=== PATIENT | male | born 1955 | race Hispanic/Latino ===

== ENCOUNTER → 2019-10-12 | Outpatient (CLI) | payer SELFPAY | END | disposition home or self-care (01) | LOC: RAH 14:09 | PROVIDERS: ATTEND Internal Medicine | DX: M47.814 Spondylosis without myelopathy or radiculopathy, thoracic region (principal); M43.8X4 Other specified deforming dorsopathies, thoracic region | CPT/HCPCS: 72070 ==

== ENCOUNTER → 2019-11-04 | Outpatient (CLI) | payer OTHER, SELFPAY | END | disposition home or self-care (01) | LOC: RAH 08:36 | PROVIDERS: ATTEND Internal Medicine | DX: K80.20 Calculus of gallbladder without cholecystitis without obstruction (principal); Z87.891 Personal history of nicotine dependence | CPT/HCPCS: 76705; 76775 ==

== ENCOUNTER → 2019-11-30 | Outpatient (CLI) | payer SELFPAY | END | disposition home or self-care (01) | LOC: RAH 07:36 | PROVIDERS: ATTEND Internal Medicine | DX: S22.050A Wedge compression fracture of T5-T6 vertebra, initial encounter for closed fracture (principal); X58.XXXA Exposure to other specified factors, initial encounter; Y93.89 Activity, other specified; Y92.89 Other specified places as the place of occurrence of the external cause; Y99.8 Other external cause status | CPT/HCPCS: 72146 ==

== ENCOUNTER → 2023-02-19 | Outpatient (CLI) | payer OTHER | END | disposition home or self-care (01) | LOC: RAH 10:13 | PROVIDERS: ATTEND Internal Medicine | DX: I70.0 Atherosclerosis of aorta (principal); I25.10 Atherosclerotic heart disease of native coronary artery without angina pectoris | CPT/HCPCS: 93880 ==

== ENCOUNTER 2023-04-01 17:17 | Emergency (ER) | payer OTHER ==
[~2023-04-01] VITALS: Ht 162.6 cm; Wt 68.9 kg
[2023-04-01 17:48] LABS: HEMATOCRIT 41.3 % (42-54); MEAN CORPUSCULAR HEMOGLOBIN 30.4 pg (27.0-33.0); MEAN CORPUSCULAR HGB CONC 32.7 g/dL (32.0-36.0); MONOCYTES % (AUTO) 5.5 % (3.0-13.0); NEUTROPHILS % (AUTO) 82.9 % (40.0-77.0); PLATELET COUNT (AUTO) 191 K/uL (130-400); RED BLOOD CELL COUNT(AUTO) 4.44 MIL/uL (4.50-6.20); WHITE BLOOD COUNT (AUTO) 6.8 K/uL (4.8-10.8)
[2023-04-01 17:57] LABS: CREATININE 0.9 mg/dL (0.5-1.5); POTASSIUM 3.7 mmol/L (3.5-5.1)
[2023-04-01 18:00] LABS: APPEARANCE,URINE CLEAR (CLEAR); BILIRUBIN,URINE NEGATIVE (NEGATIVE); COLOR,URINE YELLOW (YELLOW); GLUCOSE, URINE (UA) NEGATIVE (NEGATIVE); KETONES,URINE 10 mg/dL (NEGATIVE); LEUKOCYTE ESTERASE ,URINE 75 Leu/uL (NEGATIVE); NITRATE,URINE NEGATIVE (NEGATIVE); OCCULT BLOOD,URINE NEGATIVE (NEGATIVE); PH,URINE 5.5 (5.0-8.0); PROTEIN,URINE 30 mg/dL (NEGATIVE)
[2023-04-01 18:03] LABS: ALBUMIN 3.3 g/dL (3.5-5.0); TOTAL PROTEIN, SERUM 7.4 g/dL (6.0-8.3)
[2023-04-01 18:20] LABS: BACTERIA,URINE FEW /HPF (None Seen); MUCUS,URINE RARE LPF (None Seen); RBC,URINE 0-1 /HPF (0-1); SQUAMOUS EPITHELIAL CELL,UR RARE /HPF (0-2)
[2023-04-01] MEDS ORDERED: ZOSYN 3.375GM +NS 50ML IVPB ONE (19:00)
[2023-04-01] MEDS ORDERED: IOHEXOL-350 75 ML VIAL IV ONE (20:25)
[2023-04-01 22:33] VITALS: BP 138/78; PULSE 78; RESP 16; O2SAT 97
== END 2023-04-01 23:10 | disposition home or self-care (01) ==
LOC: EDH 17:17
DX: K85.90 Acute pancreatitis without necrosis or infection, unspecified (principal); K80.20 Calculus of gallbladder without cholecystitis without obstruction; N39.0 Urinary tract infection, site not specified; I10 Essential (primary) hypertension; E78.00 Pure hypercholesterolemia, unspecified; Z85.528 Personal history of other malignant neoplasm of kidney
CPT/HCPCS: 99285; 74177; 96365; 96366; 76700; 80053; 83690; 85025; 87088; 81001; 36415; J2543; Q9967

== ENCOUNTER → 2023-04-01 | Outpatient (CLI) | payer OTHER | END | disposition home or self-care (01) | LOC: RAH 09:26 | PROVIDERS: ATTEND Internal Medicine | DX: K80.20 Calculus of gallbladder without cholecystitis without obstruction (principal); K29.70 Gastritis, unspecified, without bleeding; I70.0 Atherosclerosis of aorta | CPT/HCPCS: 76700 ==

== ENCOUNTER → 2024-11-21 | Outpatient (CLI) | payer OTHER ==
--- NOTE | 2024-11-21 14:07 | HMCIMG ---
SHOULDER COMP 2+VWS LT HISTORY: Left shoulder pain COMPARISON: None TECHNIQUE: 2 images of left shoulder were obtained. FINDINGS: There is no acute displaced fracture or dislocation. Degenerative changes are seen. Postop changes are seen of the upper thoracic spine. IMPRESSION: 1. Findings as described above.
--- NOTE | 2024-11-21 14:11 | HMCIMG ---
CHEST 2VWS HISTORY: Pneumonia COMPARISON: None FINDINGS: Frontal and lateral projections of the chest were obtained. There are mild bilateral pulmonary infiltrates suggestive of mild pulmonary vascular congestion with possible superimposed pneumonitis. The heart is not enlarged. Postop changes are seen of the thoracic spine. Degenerative changes are seen of the thoracolumbar spine. IMPRESSION: 1. There are mild bilateral pulmonary infiltrates suggestive of mild pulmonary vascular congestion with possible superimposed pneumonitis.
== END | disposition home or self-care (01) ==
LOC: RAH 12:56
PROVIDERS: ATTEND Nurse Practitioner Family
DX: M19.012 Primary osteoarthritis, left shoulder (principal); R91.8 Other nonspecific abnormal finding of lung field; J18.9 Pneumonia, unspecified organism; M25.512 Pain in left shoulder; M47.815 Spondylosis without myelopathy or radiculopathy, thoracolumbar region
CPT/HCPCS: 71046; 73030

== ENCOUNTER 2025-02-27 16:46 | Inpatient (IN) | payer OTHER ==
[~2025-02-27] VITALS: Ht 154.9 cm; Wt 53.3 kg
--- NOTE | 2025-02-27 18:02 | ERN ---
General Chief Complaint: Cough Stated Complaint: PERSISTENT COUGH/SOB/ UNBALANCED Time Seen by MD: 16:48 Source: patient History of Present Illness Initial Comments Patient is a 69-year-old male coming in complaining of cough. Per patient's was seen by his PCP and was diagnosed with a pneumonia. Patient also has a history of lung cancer. Allergies: Coded Allergies: No Known Allergies (Unverified Allergy, Unknown, 04/01/23) Past Medical History Past Medical History: Cancer, High Cholesterol, Hypertension Medical History Other: KIDNEY CA, BONE META Past Surgical History: Other Surgical History Other: BACK SX Social History Social History: Negative ROS Dictation CONSTITUTIONAL: No chills, no fever, no weakness, no diaphoresis, no malaise. HEAD/FACE: No signs of trauma. EENT: No eye pain, no blurred vision, no tearing, no double vision, no ear pain, no ear discharge, no nose pain, no nasal congestion, no throat pain, no throat swelling, no mouth pain. RESPIRATORY: cough, no orthopnea, SOB, no stridor, no wheezing. CARDIOVASCULAR: No chest pain, no edema, no palpitations, no syncope. GASTROINTESTINAL/ABDOMINAL: No abdominal pain, no constipation, no diarrhea, no nausea, no vomiting. GENITOURINARY: No abnormal discharge, no dysuria, no frequent urination, no hematuria. No complaints of pain in the genitals. MUSCULOSKELETAL: No back pain, no gout, no joint pain, no joint swelling, no muscle pain, no muscle stiffness, no neck pain. INTEGUMENTARY: No change in color, no change in hair/nails, no dryness, no lesion, no lumps, no rash. NEUROLOGICAL/PSYCH: No anxiety, not depressed, no emotional problem, no headache, no numbness, no pre-existing deficit, no history of seizures, no tremors, no weakness. HEMATOLOGIC/LYMPHATIC: Not anemic, no history of blood clots, no apparent bleeding, no bruising, glands not swollen. All Systems Negative, Except as Noted. Physical Exam Physical Exam Dictation VITAL SIGNS: Reviewed. GENERAL APPEARANCE: Alert, oriented x3, no acute distress, obese. HEAD AND FACE: Non-traumatic. EYES: PERRL, pink conjunctivas, eyelid no trauma, anterior chamber clear. EARS: Pinnas intact and no signs of trauma or erythema. Ear canals clear and no discharge. TMs no erythema. NOSE: No discharge, no bleeding. OROPHARYNX: Mouth normal, teeth no caries, tongue pink. Pharynx clear, no erythema. Tonsils no exudates, no abscesses noted. Mucous membrane moist. NECK: Supple, non-tender, no thyromegaly, no masses, no JVD, no bruits. BREAST: Deferred. CHEST: No tenderness, no crepitus, no paradoxical movement, no retractions. LUNGS: Clear, well-ventilated, symmetric, rales, no wheezing, rhonchi, no stridor, good breath sounds bilaterally. HEART: Regular rate, regular rhythm, no murmur, no gallops. VASCULAR: No peripheral edema. ABDOMEN: Soft, positive bowel sounds, nondistended, no guarding, nontender, no rebound, no masses no hepatomegaly, no splenomegaly, no Dove's sign, no hernia s. RECTAL: Deferred. GENITAL: Deferred. NEUROLOGICAL: Normal speech, gross motor function intact, gross sensory function intact. MUSCULOSKELETAL: Neck nontender, full range of motion, back nontender, full range of motion. EXTREMITIES: Nontender, full range of motion. SKIN: Color pink, dry, no turgor, no rash, no lacerations, no abrasions, no contusions. LYMPHATICS: Deferred. Results Laboratory and Microbiology Lab and Micro Result Laboratory Tests Test 02/27/25 18:12 02/27/25 18:25 White Blood Count 10.0 K/uL (4.8-10.8) Red Blood Count 3.10 MIL/uL (4.50-6.20) L Hemoglobin 8.7 g/dL (14.0-18.0) L Hematocrit 29.2 % (42-54) L Mean Corpuscular Volume 94.2 fL (79-99) Mean Corpuscular Hemoglobin 28.1 pg (27.0-33.0) Mean Corpuscular Hemoglobin Concent 29.8 g/dL (32.0-36.0) L Red Cell Distribution Width 16.4 % (11.0-15.5) H Platelet Count 508 K/uL (130-400) H Mean Platelet Volume 8.6 fL (7.5-10.5) Immature Granulocyte % (Auto) 1.9 % (0-1) H Neutrophils (%) (Auto) 74.8 % (40.0-77.0) Lymphocytes (%) (Auto) 13.4 % (21.0-51.0) L Monocytes (%) (Auto) 7.1 % (3.0-13.0) Eosinophils (%) (Auto) 2.5 % (0.0-8.0) Basophils (%) (Auto) 0.3 % (0.0-5.0) Neutrophils # (Auto) 7.4 K/uL (1.8-7.7) Lymphocytes # (Auto) 1.3 K/uL (1.0-4.8) Monocytes # (Auto) 0.7 K/uL (0.1-1.0) Eosinophils # (Auto) 0.25 K/uL (0.00-0.70) Basophils # (Auto) 0.03 K/uL (0.00-0.20) Absolute Immature Granulocyte (auto 0.19 K/uL (0-1) Nucleated Red Blood Cells 0.0 % (0.0-0.19) Red Blood Cell Morphology See comments Sodium Level 134 mmol/L (136-145) L Potassium Level 3.8 mmol/L (3.5-5.1) Chloride Level 99 mmol/L (101-111) L Carbon Dioxide Level 30 mmol/L (21-32) Blood Urea Nitrogen 10 mg/dL (7-18) Creatinine 0.7 mg/dL (0.5-1.3) Glomerular Filtration Rate Calc 99 mL/min (>90) Random Glucose 106 mg/dL (70-105) H Lactic Acid Level 1.5 mmol/L (0.8-2.5) Total Calcium 9.2 mg/dL (8.5-10.1) Total Bilirubin 0.5 mg/dL (0.2-1.0) Aspartate Amino Transf (AST/SGOT) 16 U/L (10-37) Alanine Aminotransferase (ALT/SGPT) 11 U/L (12-78) L Alkaline Phosphatase 61 U/L (50-136) Troponin I High Sensitivity 15 ng/L (4-75) B-Type Natriuretic Peptide 105 pg/mL (0-100) H Total Protein 7.6 g/dL (6.0-8.3) Albumin 2.2 g/dL (3.5-5.0) L Influenza Type A Antigen Negative For Type A Influenza Type B Antigen Negative For Type B SARS-CoV-2, RNA, NAAT NEGATIVE SARS CoV-2 Labs Reviewed?: Yes EKG/XRAY/US/CT/MRI X-RAY Comment Chest x-ray: Left lung pneumonia MDM MDM: Differential diagnosis: Sepsis, pneumonia, history of lung cancer Cavitary malignancy, fungal pneumonia Rationale: Tests considered and ordered secondary to shared decision making include: labs, ECG and radiology Previous outside records reviewed: Old ER visits. Risk of complication and/or morbidity or mortality of patient management: None Medications-Per medication reconciliation Need for hospitalization: Patient does meet criteria for hospitalization. Need for emergency major/minor surgery: No There are no social concerns with this patient. Prescription drug management Prescriptions will include symptomatic care Patient's prior external medical records from other ER visits were reviewed by me as indicated. Prior testing and results from previous visits were reviewed. Prior tests were taken into account with medical decision making and resource utilization, independent historian/historians were used to obtain complete medical history. I independently interpreted the test that were performed, results were reviewed by me and considered findings on radiology if ordered. Medical management and examination interpretation discussions were had by me with other qualified healthcare professionals as indicated for the patient's care. ED Course Orders Procedure Category Date Status Time Cbc With Differential LAB 02/27/25 Complete 17:52 Blood Cult YOSHI 02/27/25 Logged 17:52 Urinalysis Profile LAB 02/27/25 Logged 17:52 Comprehensive LAB 02/27/25 Complete Metabolic Panel 17:58 Troponin I High LAB 02/27/25 Complete Sensitivity 17:58 B-Type Natriuretic LAB 02/27/25 Complete Peptide 17:58 Covid Rna Naat LAB 02/27/25 Complete 17:58 Influenza Type A & B, LAB 02/27/25 Complete Rapid 17:58 Chest 1vw RAD 02/27/25 Resulted 17:58 Lactic Acid LAB 02/27/25 Complete 18:13 Ceftriaxone 1g Vial PHA 02/27/25 Complete (Rocephine 1g Inj) 19:00 Azithromycin 500mg+Ns PHA 02/27/25 In Process 250ml (Azithromyci 19:00 Ipratropium/Albuterol PHA 02/27/25 Complete Neb (Duoneb) 19:30 0.9%Nacl 1000ml (Ns PHA 02/27/25 In Process 1000ml) 19:30 Edm Admit Bridge Order ADM 02/27/25 Transmitted 19:50 Current Medications Medications (Trade) Dose Ordered Sig/Zoe Route PRN Reason Start Time Stop Time Status Last Admin Dose Admin Albuterol (DUOneb) 1 UDVIAL ONCE ONCE IH 02/27/25 19:30 02/27/25 19:31 DC 02/27/25 19:39 Azithromycin 250 ml @ 250 mls/hr Q24H IVPB 02/27/25 19:00 03/09/25 18:59 Ceftriaxone Sodium (ROCEphine 1G INJ) 1 gm ONCE ONCE IVPB 02/27/25 19:00 02/27/25 19:01 DC Sodium Chloride 1,000 ml @ 125 mls/hr ONCE ONCE IV 02/27/25 19:30 02/28/25 03:29 Vital Signs Date Time Temp Pulse Resp B/P (MAP) Pulse Ox O2 Delivery O2 Flow Rate FiO2 02/27/25 19:43 82 18 02/27/25 19:37 98.2 83 18 153/80 96 Room Air* 0 21 02/27/25 17:25 98.2 94 18 141/69 96 Room Air* 0 21 02/27/25 17:23 98.2 94 18 141/69 96 Room Air 0 7:00 p.m. patient was signed out to me by a.m. physician . This is a 69-year-old male with a known history of lung CA presented with cough congestion and apparently was evaluated by his primary care physician and diagnosed with pneumonia and referred to the ER for further evaluation. He denied any fevers chills but does give a history of cough with mucoid sputum. He also reports weakness and debility. He stated that for his lung cancer he only gets a pill. He does not recall all the details about when his 1st diagnosis was. Temperature is 98.2 pulse 94 respirations 18 blood pressure 141/69 with a pulse oximetry of 96% on room air. Extremely debilitated elderly male but not in any acute respiratory distress. Coarse rhonchi in the left lung. Labs reviewed hemoglobin is 8.7 [place] [address] lactic acid 1.5 BNP 7 shows a sodium of 134 chloride 99. Viral swabs are negative. Chest x-ray shows thick cavitary left upper lobe pneumonia which may represent either a lung abscess or worsening carcinoma. I recommended admission to the hospital for further management including cultures and IV antibiotics and patient is agreeable. A.m. physician has already given him Rocephin and azithromycin. We will need CT scan of the chest and pulmonary consultation perhaps even a bronchoscopy and cultures to streamline the antibiotic therapy. 7:45 p.m. patient accepted by Noemi mid-level provider for hospitalist group for admission and further management. DX & DISP Disposition: Inpatient Decision to Admit Time: 19:24 Departure Impression: Primary Impression: Pneumonia involving left lung Additional Impressions: History of lung cancer, Cavitary pneumonia Condition: Stable Additional Instructions: Patient was informed of all the diagnostic labs and procedures conducted in the emergency room today and demonstrated understanding of the results. I personally reviewed and interpreted all the diagnostic exams performed in the ER today. The patient will be admitted to the hospital for further treatment and evaluation. Disposition-admit to facility Condition-stable/guarded Course-uncertain at this time Pain status-decreased Assessment-exam unchanged Admission Certification- I certify that the patients status is appropriate and is based on my best clinical judgment and the patient's condition as documented in the medical records Referrals: VALERIE CHENG MD (PCP) BANG RICH MD Feb 27, 2025 18:02 BENITO AVILA MD Feb 27, 2025 19:30
[2025-02-27 18:38] LABS: BASOPHILS # (AUTO) 0.03 K/uL (0.00-0.20); BASOPHILS % (AUTO) 0.3 % (0.0-5.0); EOSINOPHILS # (AUTO) 0.25 K/uL (0.00-0.70); EOSINOPHILS % (AUTO) 2.5 % (0.0-8.0); HEMATOCRIT 29.2 % (42-54); IMMATURE GRANULOCYTE ABSOLUTE 0.19 K/uL (0-1); LYMPHOCYTES # (AUTO) 1.3 K/uL (1.0-4.8); LYMPHOCYTES % (AUTO) 13.4 % (21.0-51.0); MEAN CORPUSCULAR HEMOGLOBIN 28.1 pg (27.0-33.0); MEAN CORPUSCULAR HGB CONC 29.8 g/dL (32.0-36.0); MEAN CORPUSCULAR VOLUME 94.2 fL (79-99); MONOCYTES # (AUTO) 0.7 K/uL (0.1-1.0); MONOCYTES % (AUTO) 7.1 % (3.0-13.0); NEUTROPHILS # (AUTO) 7.4 K/uL (1.8-7.7); NEUTROPHILS % (AUTO) 74.8 % (40.0-77.0); PLATELET COUNT (AUTO) 508 K/uL (130-400); RED CELL DISTRIBUTION WIDTH 16.4 % (11.0-15.5)
[2025-02-27 18:57] LABS: SARS-CoV-2, RNA, NAAT NEGATIVE SARS CoV-2 (NEGATIVE)
[2025-02-27 19:03] LABS: INFLUENZA TYPE A Negative For Type A (NEGATIVE); INFLUENZA TYPE B Negative For Type B (NEGATIVE)
[2025-02-27 19:06] LABS: ALBUMIN 2.2 g/dL (3.5-5.0); BILIRUBIN,TOTAL 0.5 mg/dL (0.2-1.0); CREATININE 0.7 mg/dL (0.5-1.3); POTASSIUM 3.8 mmol/L (3.5-5.1); TOTAL PROTEIN, SERUM 7.6 g/dL (6.0-8.3)
--- NOTE | 2025-02-27 19:30 | HMCIMG ---
CHEST 1VW HISTORY: Fall COMPARISON: 11/21/2024 FINDINGS: A frontal projection of the chest was obtained. Extensive left lung pulmonary infiltrates are seen. Mild right lower lung pulmonary infiltrates are seen. The heart is borderline enlarged. Degenerative changes are seen. Postop changes are seen about the spine. No evidence of aortic calcification is seen. IMPRESSION: 1. Extensive left lung pulmonary infiltrates are seen. Mild right lower lung pulmonary infiltrates are seen.
[2025-02-27] MEDS: IpraTROPium/alBUTERol SULFATE 3 ML SOLUTION IH ONE (19:39)
[2025-02-27 19:43] VITALS: PULSE 82; RESP 18
[2025-02-27] MEDS: cefTRIAXone 1G VIAL IVPB ONE (20:05)
[2025-02-27] MEDS: AZITHROMYCIN 500MG+NS 250ML 250 ML IVPB SCH (20:18)
[2025-02-27] MEDS: 0.9%NACL 1000ML 1,000 ML IV ONE (20:19)
--- NOTE | 2025-02-27 21:03 | HP ---
[facility] HISTORY AND PHYSICAL Date of Service: Feb 27, 2025 Time of Service: 21:02 Attending/supervising physicians: Dr. Condon and Dr. Gibson HISTORY OF PRESENT ILLNESS: Mr. Daniels is a 69-year-old male with a history of a kidney cancer, bone metastasis, hypercholesteremia, hypertension who [place] [facility] of persistent cough. The patient denied known history of lung CA. Per patient's was seen by his PCP and was diagnosed with a pneumonia. Troponin WNL. D-dimer 2118. BNP 105. ABG: PO2 80.9 on room air. O2 sats 96% on room air. CT PE protocol: Small bilateral pleural effusions are seen. Bilateral lower lung pulmonary acute process in the left more than right. There are bilateral interstitial fibrosis and bronchiectasis. No CT evidence of pleural effusion or pericardial effusion is seen. The heart is enlarged. Coronary arterial calcifications are seen. No evidence of adrenal mass is seen. Degenerative changes of the spine are noted. IMPRESSION: 1. No CT evidence of acute pulmonary embolus is seen. Small bilateral pleural effusions. Bilateral lower lung infiltrates. ED administered Rocephin, Zithromax, NS1 L, and DuoNeb treatments. ED provider request patient be admitted with the diagnosis of pneumonia involving left lung, cavitary pneumonia, history lung CA I assessed the patient at bedside in ED 3. Breathing was even, unlabored, in no distress. Breath sounds diminished bilaterally. Patient coughed frequently during my assessment. I informed patient of labs, diagnostics, and plan of care. He verbalized understanding and is in agreement with the plan. Plan and assessment are listed below. ADDENDUM: RN called to report per Magnetic pt has a DVT on left lower extremity. Pending the official report. REVIEW OF SYSTEMS 12-point ROS reviewed with patient. All pertinent positives mentioned above. Otherwise negative, noncontributory, non-pertinent. PAST MEDICAL HISTORY: As mentioned above PAST SURGICAL HISTORY: Back surgery PAST SOCIAL HISTORY: Patient denies alcohol, tobacco, illicit drug use. FAMILY HISTORY: Noncontributory Coded Allergies: No Known Allergies (Unverified Allergy, Unknown, 04/01/23) PHYSICAL EXAM GENERAL APPEARANCE: The patient is awake, alert, and oriented, in no acute cardiopulmonary distress. NEUROLOGICAL: Cranial nerves II-XII grossly intact. Motor is 5/5 in bilateral upper and lower extremities proximal to distal. No sensory deficits. HEENT: Face is symmetric. Pupils are equal and reactive. Extraocular movements are intact. NECK: Supple. No JVD. No thyromegaly. No submental, submandibular, pre- /postauricular, occipital or supraclavicular lymphadenopathy. CHEST: Normal chest expansion. No Telemetry. LUNGS: Diminished. Frequently coughed during my examination. CARDIOVASCULAR: Regular. S1 and S2 normal. No appreciable rubs, murmurs or gallops. ABDOMEN: Soft, nontender, and nondistended. There is no rebound, voluntary guarding, or rigidity. : Deferred. No Zamarripa. EXTREMITIES: Non-edematous and not cyanotic. No clubbing. Good capillary refill. SKIN: No skin breakdown. Vital Sign (Last 24 Hours) 02/27/25 02/27/25 19:37 19:43 Temp 98.2 Pulse 82 Resp 18 B/P (MAP) 153/80 Pulse Ox 96 O2 Delivery Room Air* O2 Flow Rate 0 FiO2 21 LABS: Laboratory: Test 02/27/25 18:25 02/27/25 18:12 Range/Units Influenza Type A Antigen Negative For Type A NEGATIVE Influenza Type B Antigen Negative For Type B NEGATIVE SARS-CoV-2, RNA, NAAT NEGATIVE SARS CoV-2 NEGATIVE White Blood Count 10.0 4.8-10.8 K/uL Red Blood Count 3.10 L 4.50-6.20 MIL/uL Hemoglobin 8.7 L 14.0-18.0 g/dL Hematocrit 29.2 L 42-54 % Mean Corpuscular Volume 94.2 79-99 fL Mean Corpuscular Hemoglobin 28.1 27.0-33.0 pg Mean Corpuscular Hemoglobin Concent 29.8 L 32.0-36.0 g/dL Red Cell Distribution Width 16.4 H 11.0-15.5 % Platelet Count 508 H 130-400 K/uL Mean Platelet Volume 8.6 7.5-10.5 fL Immature Granulocyte % (Auto) 1.9 H 0-1 % Neutrophils (%) (Auto) 74.8 40.0-77.0 % Lymphocytes (%) (Auto) 13.4 L 21.0-51.0 % Monocytes (%) (Auto) 7.1 3.0-13.0 % Eosinophils (%) (Auto) 2.5 0.0-8.0 % Basophils (%) (Auto) 0.3 0.0-5.0 % Neutrophils # (Auto) 7.4 1.8-7.7 K/uL Lymphocytes # (Auto) 1.3 1.0-4.8 K/uL Monocytes # (Auto) 0.7 0.1-1.0 K/uL Eosinophils # (Auto) 0.25 0.00-0.70 K/uL Basophils # (Auto) 0.03 0.00-0.20 K/uL Absolute Immature Granulocyte (auto 0.19 0-1 K/uL Nucleated Red Blood Cells 0.0 0.0-0.19 % Red Blood Cell Morphology See comments Sodium Level 134 L 136-145 mmol/L Potassium Level 3.8 3.5-5.1 mmol/L Chloride Level 99 L 101-111 mmol/L Carbon Dioxide Level 30 21-32 mmol/L Blood Urea Nitrogen 10 7-18 mg/dL Creatinine 0.7 0.5-1.3 mg/dL Glomerular Filtration Rate Calc 99 >90 mL/min Random Glucose 106 H 70-105 mg/dL Lactic Acid Level 1.5 0.8-2.5 mmol/L Total Calcium 9.2 8.5-10.1 mg/dL Total Bilirubin 0.5 0.2-1.0 mg/dL Aspartate Amino Transf (AST/SGOT) 16 10-37 U/L Alanine Aminotransferase (ALT/SGPT) 11 L 12-78 U/L Alkaline Phosphatase 61 50-136 U/L Troponin I High Sensitivity 15 4-75 ng/L B-Type Natriuretic Peptide 105 H 0-100 pg/mL Total Protein 7.6 6.0-8.3 g/dL Albumin 2.2 L 3.5-5.0 g/dL Current Medications Medications (Trade) Dose Ordered Sig/Zoe Route PRN Reason Start Time Stop Time Status Last Admin Dose Admin Azithromycin 250 ml @ 250 mls/hr Q24H IVPB 02/27/25 19:00 03/09/25 18:59 02/27/25 20:18 250 MLS/HR DIAGNOSTICS / RADIOLOGY: [ ] ASSESSMENT: Acute hypoxemic respiratory failure, POA Bilateral interstitial fibrosis and bronchiectasis, per CT on 02/27/2025 Small bilateral pleural effusions, POA, per CT Bilateral lower lung infiltrate, per CT Bilateral lower lung pulmonary acute process in the left > right, per CT Persistent cough Cardiomegaly Coronary arterial calcifications Elevated D-dimer, PE was ruled out by CT Elevated BNP at 105 Renal cancer and bone Mets Hypertension Hypercholesteremia PLAN: -Admit to Medical floor with continuous telemetry monitoring. -Obtained CT PE protocol and ABGs. -Obtain bilat venous doppler. -[Addendum: Start Heparin drip per [facility] tech report, pt has a DVT.] -Monitor respiratory status closely. -Continue oxygen therapy as needed. Titrate oxygen prn to keep Spo2>/+=92%. -Pulmicort, Albuterol and Atrovent nebulizer treatment scheduled. -RT to provide IS and education on use. -Robitussin DM as needed cough. -Decadron 6 mg IV daily. -Consult pulmonary team. -Continue antibiotic therapy: Doxycycline IV and Rocephin IV -p.r.n. medications for: Pain management, hypertension, nausea, vomiting, constipation, fever. -Glucometer checks AC & HS needed with insulin regular sliding scale coverage as needed. -Blood pressure checks every 4 hours and as needed. -Reconcile home medications once available. -AM labs. -Monitor renal and liver function -Monitor electrolytes and treat accordingly. -GI and DVT prophylaxis -Additional orders per hospital course. ADVANCED CARE PLANNING 1. Which of the following were discussed? Hospice Care - No Therapeutic options - Yes Advance Directives - Yes Other discussions - 2. Discussed with who? Patient 3. Voluntary nature of this service was explained to the patient? Yes 4. Amount of time spent - __ Over 40 minutes 5. Reviewed by Physician? (if this service was performed by JESSICA) Yes ATTESTATION BY PHYSICIAN I have seen and examined the patient. I reviewed the documentation, medical decision making, and treatment plan as noted by the mid-level provider above. I agree with the findings and plan of care. KELLEE JOHNSON [facility] Feb 27, 2025 21:03
[2025-02-27 23:26] LABS: ABG BASE EXCESS 2.8 mmol/L (-2.0-3.0); ABG HCO3 26.5 mmol/L (21.0-28.0); ABG OXYGEN SATURATION 95.4 % (94.0-98.0); ABG PCO2 37 mmHg (35-48); ABG PH 7.472 (7.350-7.450); DEVICE COMMENT RR RN; HHb 4.5; PO2, ARTERIAL BG 80.9 mmHg (83.0-108.0); VENT MODE, BG RA (ROOM AIR)
[2025-02-27] MEDS ORDERED: IOHEXOL-350 75 ML VIAL IV ONE (23:57)
[2025-02-28] VITALS (10 sets, daily range): BP systolic 144–147; BP diastolic 74–76; PULSE 76–92; RESP 18–19; TEMP 97.6–98.1; O2SAT 97–99
--- NOTE | 2025-02-28 00:25 | HMCIMG ---
CT CHEST PE PROTOCOL O CONT HISTORY: Dyspnea COMPARISON: 04/01/2023 TECHNIQUE: CT angiography of the chest was performed. The study was performed using angiographic technique with maximum intensity projection reconstruction images. Patient was given 75 cc of Omnipaque through intravenous route. FINDINGS: No CT evidence of filling defect is seen to suggest pulmonary embolus. No CT evidence of aortic dissection is seen. Small bilateral pleural effusions are seen. Bilateral lower lung pulmonary acute process in the left more than right. There are bilateral interstitial fibrosis and bronchiectasis. No CT evidence of pleural effusion or pericardial effusion is seen. The heart is enlarged. Coronary arterial calcifications are seen. No evidence of adrenal mass is seen. Degenerative changes of the spine are noted. IMPRESSION: 1. No CT evidence of acute pulmonary embolus is seen. Small bilateral pleural effusions. Bilateral lower lung infiltrates. CT was performed with one or more following dose reduction techniques: automated exposure control, adjustment of the mA and kv according to patient's size, or use of a iterative reconstruction technique.
[2025-02-28] MEDS ORDERED: LAbetaLOL 20MG SYG IV PRN (00:30)
[2025-02-28] MEDS ORDERED: acetaMINOPHEN 650 MG SUPPOSITORY RC PRN (00:30)
[2025-02-28] MEDS ORDERED: ondanSETRON 4MG INJ IVP PRN (00:30)
[2025-02-28] MEDS ORDERED: LACTULOSE 20 GM/30 ML UDCUP PO PRN (00:30)
[2025-02-28] MEDS ORDERED: TEMAZepam 15 MG CAPSULE PO PRN (00:30)
[2025-02-28] MEDS ORDERED: doCUSate SODIUM 100 MG CAP PO PRN (00:30)
[2025-02-28] MEDS: BUDESONIDE 0.5 MG/2 ML INH IH SCH (01:00)
[2025-02-28] MEDS: IpraTROPium 0.5 MG/2.5 ML INH IH SCH (01:54)
[2025-02-28] MEDS: ALBUTEROL 0.083% 2.5 MG/3 ML INH IH SCH (01:54)
--- NOTE | 2025-02-28 06:05 | NUR ---
[employer] OPERATOR NOTIFIED OF US PRELIMANARY.
[2025-02-28] MEDS: dexaMETHasone SOD PHOSPHATE 4 MG/ML 1ML VIAL IV SCH (06:17)
--- NOTE | 2025-02-28 07:05 | NUR ---
ASSUMED CARE OF PT
[2025-02-28] MEDS: INSULIN humuLIN R 100 UNIT/ML 3ML SQ SCH (07:30)
[2025-02-28] MEDS: cefTRIAXone 1G VIAL IVPB SCH (08:00)
--- NOTE | 2025-02-28 08:32 | HMCIMG ---
Exam Type: US VENOUS DOPPLER BILATERAL Clinical Information: elevated DDIMER Comparison: None Findings: The examination shows nonocclusive thrombosis of the GSV bilaterally. The rest of the venous structures evaluated shows no evidence of thrombosis. IMPRESSION: Thrombus as noted.
--- NOTE | 2025-02-28 08:46 | NUR ---
8AM ROCEPHINE NOT ADMINISTERED PT HAD IT AT 20:05. DR HICKEY,[facility] RESIDENT AWARE,WILL CHANGE SCHEDULE.
[2025-02-28] MEDS ORDERED: DOXYCYCLINE 100MG+NS 250ML 250 ML IV SCH ×2 (09:00→17:30)
[2025-02-28 09:39] LABS: APPEARANCE,URINE CLEAR (CLEAR); BILIRUBIN,URINE NEGATIVE (NEGATIVE); COLOR,URINE YELLOW (YELLOW); GLUCOSE, URINE (UA) NEGATIVE (NEGATIVE); KETONES,URINE 10 mg/dL (NEGATIVE); LEUKOCYTE ESTERASE ,URINE NEGATIVE Leu/uL (NEGATIVE); NITRATE,URINE NEGATIVE (NEGATIVE); OCCULT BLOOD,URINE NEGATIVE (NEGATIVE); PH,URINE 7.5 (5.0-8.0); PROTEIN,URINE 10 mg/dL (NEGATIVE); UROBILINOGEN,URINE 3 mg/dL (0.2-1.0)
[2025-02-28 09:40] LABS: ADD UA MICROSCOPIC YES
[2025-02-28 09:42] LABS: RBC,URINE 0-1 /HPF (0-1); SQUAMOUS EPITHELIAL CELL,UR RARE /HPF (0-2)
--- NOTE | 2025-02-28 10:01 | CONS ---
[facility] CONSULTATION NOTE Date Patient Seen: Feb 28, 2025 Time of Visit: 10:01 Supervising Physician: Dr. Luis Caraballo Reason for Consultation: Bilateral interstitial fibrosis with hypoxemia, multilobular pneumonia, right lower lobe and left upper lobe Primary Care Physician: Dr.Julio Laura Strange Outpatient Specialists: [ ] Inpatient Consults: Dr. Natalie Hand (hematology/oncology) PROBLEM LIST: 1. Acute hypoxemic respiratory failure 2. Pneumonia multilobular: Right lower lobe, left upper lobe 3. Elevated D-dimer 2118, CT chest ruled out PE 4. Thrombus bilateral GSV, patient is started on heparin drip anticoagulation, in case bronchoscopy for confirmation of TB 5. Renal cancer with bone Mets 6. Hypertension 7. Daily AFB sputums to rule out TB HPI: Maty Daniels is a 69-year-old gentleman, patient of Dr. Perry Strange , health history: Emphysema, hypertension, hypercholesterolemia, and history of renal carcinoma with bone metastasis presents to the emergency department on 02/27/2025 for treatment of pneumonia. Patient reports being diagnosed by his PCP with pneumonia recently started on antibiotics. Shortness of the breath has progressively worsened prompting the patient to seek further evaluation, treatment, and management at the emergency department. Chest x-ray 02/27/2025 results:A frontal projection of the chest was obtained. Extensive left lung pulmonary infiltrates are seen. Mild right lower lung pulmonary infiltrates are seen. The heart is borderline enlarged. Degenerative changes are seen. Postop changes are seen about the spine. No evidence of aortic calcification is seen. IMPRESSION: 1. Extensive left lung pulmonary infiltrates are seen. Mild right lower lung pulmonary infiltrates are seen. CT chest with/without contrast on 02/28/2025 results: No CT evidence of filling defect is seen to suggest pulmonary embolus.No CT evidence of aortic dissection is seen. Small bilateral pleural effusions are seen. Bilateral lower lung pulmonary acute process in the left more than right. There are bilateral interstitial fibrosis and bronchiectasis. No CT evidence of pleural effusion or pericardial effusion is seen. The heart is enlarged. Coronary arterial calcifications are seen. No evidence of adrenal mass is seen. Degenerative changes of the spine are noted. IMPRESSION: 1. No CT evidence of acute pulmonary embolus is seen. Small bilateral pleural effusions. Bilateral lower lung infiltrates. U.S. venous Doppler bilateral, 02/28/2025 results: The examination shows nonocclusive thrombosis of the GSV bilaterally. The rest of the venous structures evaluated shows no evidence of thrombosis. IMPRESSION: Thrombus as noted. PAST MEDICAL HX: see above PAST SURGICAL HX: noncontributory SOCIAL HISTORY: No tobacco, ETOH, or illicit drug use Coded Allergies: No Known Allergies (Unverified Allergy, Unknown, 04/01/23) REVIEW OF SYSTEMS: 12 point ROS reviewed with patient. Pertinent positives mentioned above. Otherwise negative. PHYSICAL EXAM: GENERAL: alert, weak, awake oriented x 3 HEENT: EOMI, Sclera non icteric, moist mucosa NECK: Supple, no JVD, trachea midline LUNGS: Clear breath sounds over diminished bilaterally. Rhonchi and inspiratory wheezes throughout. No stridor present. Patient require supplemental oxygen. HEART: Regular rate and rhythm. Normal S1 and S2, without murmurs ABD: Abdomen soft, nontender. Bowel sounds present EXT: No clubbing cyanosis or edema NEURO: Alert and oriented to person, follows commands Vital Signs (last 8hr) Date Time Temp Pulse Resp B/P (MAP) Pulse Ox O2 Delivery O2 Flow Rate FiO2 02/28/25 07:30 98.1 68 16 101/51 96 Room Air* 0 21 02/28/25 07:04 98.6 88 123/74 99 Room Air* 0 21 02/28/25 06:34 80 18 N/A Room Air 21 02/28/25 06:32 80 18 02/28/25 04:56 76 18 02/28/25 03:00 98.8 70 17 118/67 96 Room Air* 0 21 LABS: Hematology Labs: Test 02/27/25 18:12 Range/Units White Blood Count 10.0 4.8-10.8 K/uL Red Blood Count 3.10 L 4.50-6.20 MIL/uL Hemoglobin 8.7 L 14.0-18.0 g/dL Hematocrit 29.2 L 42-54 % Mean Corpuscular Volume 94.2 79-99 fL Mean Corpuscular Hemoglobin 28.1 27.0-33.0 pg Mean Corpuscular Hemoglobin Concent 29.8 L 32.0-36.0 g/dL Red Cell Distribution Width 16.4 H 11.0-15.5 % Platelet Count 508 H 130-400 K/uL Mean Platelet Volume 8.6 7.5-10.5 fL Immature Granulocyte % (Auto) 1.9 H 0-1 % Neutrophils (%) (Auto) 74.8 40.0-77.0 % Lymphocytes (%) (Auto) 13.4 L 21.0-51.0 % Monocytes (%) (Auto) 7.1 3.0-13.0 % Eosinophils (%) (Auto) 2.5 0.0-8.0 % Basophils (%) (Auto) 0.3 0.0-5.0 % Neutrophils # (Auto) 7.4 1.8-7.7 K/uL Lymphocytes # (Auto) 1.3 1.0-4.8 K/uL Monocytes # (Auto) 0.7 0.1-1.0 K/uL Eosinophils # (Auto) 0.25 0.00-0.70 K/uL Basophils # (Auto) 0.03 0.00-0.20 K/uL Absolute Immature Granulocyte (auto 0.19 0-1 K/uL Nucleated Red Blood Cells 0.0 0.0-0.19 % Red Blood Cell Morphology See comments Chemistry Labs: Test 02/28/25 08:02 02/27/25 18:12 Range/Units Whole Blood Glucose 88 70-110 MG/DL Sodium Level 134 L 136-145 mmol/L Potassium Level 3.8 3.5-5.1 mmol/L Chloride Level 99 L 101-111 mmol/L Carbon Dioxide Level 30 21-32 mmol/L Blood Urea Nitrogen 10 7-18 mg/dL Creatinine 0.7 0.5-1.3 mg/dL Glomerular Filtration Rate Calc 99 >90 mL/min Random Glucose 106 H 70-105 mg/dL Lactic Acid Level 1.5 0.8-2.5 mmol/L Total Calcium 9.2 8.5-10.1 mg/dL Total Bilirubin 0.5 0.2-1.0 mg/dL Aspartate Amino Transf (AST/SGOT) 16 10-37 U/L Alanine Aminotransferase (ALT/SGPT) 11 L 12-78 U/L Alkaline Phosphatase 61 50-136 U/L Troponin I High Sensitivity 15 4-75 ng/L B-Type Natriuretic Peptide 105 H 0-100 pg/mL Total Protein 7.6 6.0-8.3 g/dL Albumin 2.2 L 3.5-5.0 g/dL Coagulation Labs: Test 02/28/25 00:54 Range/Units D-Dimer Quantitative (PE/DVT) 2118 *H 0-500 ng/mL DIAGNOSTICS / RADIOLOGY RESULTS: [ ] PLAN NEURO: Minimize central acting medications as possible. Maintain fall precautions, adequate lighting during the day PULMONARY: Supplemental 02 as needed. Maintain aspiration precautions at all times Maintain O2 saturation greater than 92% CARDIOVASCULAR: Follow hemodynamics. Vital signs per facility protocol GI & NUTRITION: Continue with nutritional support. Continue stool softeners and laxatives as needed. KIDNEYS & ELECTROLYTES: Strict monitoring of intake, output and overall fluid balance. Avoid nephrotoxic medications to the extent possible. Medications to be dosed according to renal function. Monitor electrolytes and replace as needed ENDOCRINE: Maintain blood glucose between 100-180 at all times. Hypoglycemia protocol in place INFECTIOUS DISEASE: Trend temperature, WBC and procalcitonin level Follow cultures, deescalate antibiotics as soon as possible. Panculture if new onset fever AFB sputum to be collected on Thursday, and Flagyl 500 mg IV q.8 hours Cefepime 1 g IV q.8 hours ONCOLOGY/HEMATOLOGY/COAGULATION: Monitor for s/s of bleeding Monitor hemoglobin, coagulation studies as needed SKIN: Pressure ulcer prevention per facility protocol Specialty mattress ORTHO/REHAB: Continue PT/OT Prophylaxis: Continue GI and DVT prophylaxis Patient is started on a heparin infusion, in case bronchoscopy is required Code Status: Full Resuscitation Disposition: TBD Other: Total patient care time exceeds 35 minutes excluding all procedures. JOCY FREY NP Feb 28, 2025 10:01
[2025-02-28] MEDS: FAMOTIDINE 20MG TAB PO SCH (10:46)
--- NOTE | 2025-02-28 10:59 | NUR ---
DCP: HOME Pt currently lives with Cori Daniels [phone]. Pt does not have any insecurities with food, retirement, and/or utilities. Pt does not have any DME, home health, or provider services. Pt is able to complete ADLs independently. PCP is Perry Strange and uses [facility] for any RX needs. At ID pt will go home and family will assist with transportation. Addendum: 02/28/25 at 1101 by MARLEN DORSEY SS Amended: Links added.
[2025-02-28 11:09] LABS: INR 1.13 (0.85-1.15); PROTHROMBIN TIME 11.8 SEC (9.6-11.6)
[2025-02-28 11:11] LABS: PARTIAL THROMBOPLASTIN TIME 32.4 SEC (26.3-35.5)
[2025-02-28] MEDS: HEParin 25,000 UNITS/250ML D5W 250 ML IV SCH (11:50)
[2025-02-28] MEDS: HEParin 5,000 UNIT VIAL IV ONE (11:58)
--- NOTE | 2025-02-28 13:08 | PN ---
[facility] PROGRESS NOTE Date of Service: Feb 28, 2025 Time of Service: 12:56 SUBJECTIVE: HPI Patient is a 69-year-old male with a history of a kidney cancer, bone metastasis, hypercholesteremia, hypertension who presented to [facility] ED for evaluation of persistent cough. Per patient's was seen by his PCP and was diagnosed with a pneumonia. about 3 weeks ago , however the cough never went away. Cough is non productive and associated with shortness of breath. Labs done in the ED :Troponin WNL. D-dimer 8. BNP 105. ABG: PO2 89 on room air. O2 sats 96% on room air. CT PE protocol: No CT evidence of acute pulmonary embolus is seen. Small bilateral pleural effusions. Bilateral lower lung infiltrates. Chest x ray shows extensive left lung pulmonary infiltrates and mild right lower lobe pulmonary infiltrates. Venous doppler showed an occlusive thrombosis of the GSV bilaterally. Patient was started on Rocephin, Zithromax, NS1 L, and DuoNeb treatments. 02/28/2025: Lying in bed at the time of evaluation. Alert and oriented and in no obvious distress. Patient continues with nonproductive cough. Denies any fever, chills, chest pain, or shortness of breath. Vital signs: T 98.1, P 68, R 16, BP 101/51, oxygen saturation 96%. Patient had elevated D-dimers 2117however, CT of the chest showed no evidence of an acute PE. Continue with Ceftriaxone1 g daily, Azithromycin 500mg IV as ordered. Patient with a venous Doppler which shows nonocclusive thrombosis of the Great saphenous vein bilateral. Currently on heparin 22290 units IV. Hematology oncology consult placed for recommendations for anticoagulation in a patient with bone metastasis. Pending their recommendations. Consult also placed for pulmonology. REVIEW OF SYSTEMS CONSTITUTIONAL: No chills, no fever, no weakness, no diaphoresis, no malaise. HEAD/FACE: No signs of trauma. EENT: No eye pain, no blurred vision, no tearing, no double vision, no ear pain, no ear discharge, no nose pain, no nasal congestion, no throat pain, no throat swelling, no mouth pain. RESPIRATORY: Cough , SOB, no stridor, no wheezing. CARDIOVASCULAR: No chest pain, no edema, no palpitations, no syncope. GASTROINTESTINAL: No abdominal pain, no constipation, no diarrhea, no nausea, no vomiting. GENITOURINARY: No abnormal discharge, no dysuria, no frequent urination, no hematuria. No complaints of pain in the genitals. MUSCULOSKELETAL: No back pain, no gout, no joint pain, no joint swelling, no muscle pain, no muscle stiffness, no neck pain. INTEGUMENTARY: No change in color, no change in hair/nails, no dryness, no lesion, no lumps, no rash. NEUROLOGICAL: No anxiety, not depressed, no emotional problem, no headache, no numbness, no pre-existing deficit, no history of seizures, no tremors, no weakness. HEMATOLOGIC/LYMPHATIC: Not anemic, no history of blood clots, no apparent bleeding, no bruising, glands not swollen. PHYSICAL EXAM GENERAL APPEARANCE: The patient is awake, alert, and oriented, in no acute cardiopulmonary distress. NEUROLOGICAL: Cranial nerves II-XII grossly intact. Motor is 5/5 in bilateral upper and lower extremities proximal to distal. No sensory deficits. HEENT: Face is symmetric. Pupils are equal and reactive. Extraocular movements are intact. NECK: Supple. No JVD. No thyromegaly. No submental, submandibular, pre- /postauricular, occipital or supraclavicular lymphadenopathy. CHEST: Normal chest expansion. No Telemetry. LUNGS: Diminished breath sounds bilaterally, presence of rhonchi CARDIOVASCULAR: Regular. S1 and S2 normal. No appreciable rubs, murmurs or gallops. ABDOMEN: Soft, nontender, and nondistended. There is no rebound, voluntary guarding, or rigidity. : Deferred. No Zamarripa. EXTREMITIES: Non-edematous and not cyanotic. No clubbing. Good capillary refill. SKIN: No skin breakdown. Vital Signs (last 8hr) Date Time Temp Pulse Resp B/P (MAP) Pulse Ox O2 Delivery O2 Flow Rate FiO2 02/28/25 11:10 76 18 02/28/25 10:00 98.1 68 16 120/62 98 Room Air* 0 02/28/25 07:30 98.1 68 16 101/51 96 Room Air* 0 21 02/28/25 07:04 98.6 88 123/74 99 Room Air* 0 02/28/25 06:34 80 18 N/A Room Air 02/28/25 06:32 80 18 LABS: Laboratory: Test 02/28/25 11:16 02/28/25 10:40 02/28/25 09:00 02/28/25 00:54 Range/Units Whole Blood Glucose 108 70-110 MG/DL Prothrombin Time 11.8 H 9.6-11.6 SEC Prothromb Time International Ratio 1.13 0.85-1.15 Activated Partial Thromboplast Time 32.4 26.3-35.5 SEC Urine Color YELLOW YELLOW Urine Appearance CLEAR CLEAR Urine pH 7.5 5.0-8.0 Urine Specific Gilbert 1.355 1.001-1.031 Urine Protein 10 H NEGATIVE mg/dL Urine Glucose (UA) NEGATIVE NEGATIVE mg/dL Urine Ketones 10 H NEGATIVE mg/dL Urine Occult Blood NEGATIVE NEGATIVE Urine Nitrate NEGATIVE NEGATIVE Urine Bilirubin NEGATIVE NEGATIVE mg/dL Urine Urobilinogen 3 H 0.2-1.0 mg/dL Urine Leukocyte Esterase NEGATIVE NEGATIVE Kenneth/uL Urine RBC 0-1 0-1 /HPF Urine WBC None 0-1 /HPF Urine Squamous Epithelial Cells RARE 0-2 /HPF Urine Bacteria None None Seen /HPF D-Dimer Quantitative (PE/DVT) 2118 *H 0-500 ng/mL Test 02/27/25 23:24 02/27/25 18:25 02/27/25 18:12 Range/Units Blood Gas Specimen Type Arterial Arterial Blood pH 7.472 H 7.350-7.450 Arterial Blood Partial Pressure CO2 37 35-48 mmHg Arterial Blood Partial Pressure O2 80.9 L 83.0-108.0 mmHg Arterial Blood HCO3 26.5 21.0-28.0 mmol/L Arterial Blood Oxygen Saturation 95.4 94.0-98.0 % Arterial Blood Base Excess 2.8 -2.0-3.0 mmol/L Hemoglobin (Blood Gas) 8.3 L 13.5-17.5 g/dL Sodium (Blood Gas) 133 L 136-145 MMOL/L Bedside Potassium (Blood Gas) 3.3 L 3.4-4.5 MMOL/L Bedside Chloride (Blood Gas) 100 98-107 MMOL/L Bedside Glucose (Blood Gas) 102 H 65-95 MG/DL Bedside Ionized Calcium (Blood Gas) 1.15 1.15-1.33 MMOL/L Bedside Lactic Acid (Blood Gas) 0.91 H 0.36-0.75 MMOL/L Blood Gas Temperature 37.0 35.5-37.0 CELSIUS Blood Gas Vent Mode RA ROOM AIR FiO2 21.0 % Blood Gas Specimen Comment RR RN Influenza Type A Antigen Negative For Type A NEGATIVE Influenza Type B Antigen Negative For Type B NEGATIVE SARS-CoV-2, RNA, NAAT NEGATIVE SARS CoV-2 NEGATIVE White Blood Count 10.0 4.8-10.8 K/uL Red Blood Count 3.10 L 4.50-6.20 MIL/uL Hemoglobin 8.7 L 14.0-18.0 g/dL Hematocrit 29.2 L 42-54 % Mean Corpuscular Volume 94.2 79-99 fL Mean Corpuscular Hemoglobin 28.1 27.0-33.0 pg Mean Corpuscular Hemoglobin Concent 29.8 L 32.0-36.0 g/dL Red Cell Distribution Width 16.4 H 11.0-15.5 % Platelet Count 508 H 130-400 K/uL Mean Platelet Volume 8.6 7.5-10.5 fL Immature Granulocyte % (Auto) 1.9 H 0-1 % Neutrophils (%) (Auto) 74.8 40.0-77.0 % Lymphocytes (%) (Auto) 13.4 L 21.0-51.0 % Monocytes (%) (Auto) 7.1 3.0-13.0 % Eosinophils (%) (Auto) 2.5 0.0-8.0 % Basophils (%) (Auto) 0.3 0.0-5.0 % Neutrophils # (Auto) 7.4 1.8-7.7 K/uL Lymphocytes # (Auto) 1.3 1.0-4.8 K/uL Monocytes # (Auto) 0.7 0.1-1.0 K/uL Eosinophils # (Auto) 0.25 0.00-0.70 K/uL Basophils # (Auto) 0.03 0.00-0.20 K/uL Absolute Immature Granulocyte (auto 0.19 0-1 K/uL Nucleated Red Blood Cells 0.0 0.0-0.19 % Red Blood Cell Morphology See comments Sodium Level 134 L 136-145 mmol/L Potassium Level 3.8 3.5-5.1 mmol/L Chloride Level 99 L 101-111 mmol/L Carbon Dioxide Level 30 21-32 mmol/L Blood Urea Nitrogen 10 7-18 mg/dL Creatinine 0.7 0.5-1.3 mg/dL Glomerular Filtration Rate Calc 99 >90 mL/min Random Glucose 106 H 70-105 mg/dL Lactic Acid Level 1.5 0.8-2.5 mmol/L Total Calcium 9.2 8.5-10.1 mg/dL Total Bilirubin 0.5 0.2-1.0 mg/dL Aspartate Amino Transf (AST/SGOT) 16 10-37 U/L Alanine Aminotransferase (ALT/SGPT) 11 L 12-78 U/L Alkaline Phosphatase 61 50-136 U/L Troponin I High Sensitivity 15 4-75 ng/L B-Type Natriuretic Peptide 105 H 0-100 pg/mL Total Protein 7.6 6.0-8.3 g/dL Albumin 2.2 L 3.5-5.0 g/dL Current Medications Medications (Trade) Dose Ordered Sig/Zoe Route PRN Reason Start Time Stop Time Status Last Admin Dose Admin Acetaminophen (TYLenol 325MG TAB) 650 mg Q6H PRN PO FEVER/MILD PAIN LEVEL 1-3 02/28/25 00:30 03/30/25 00:29 Acetaminophen (TYLenol 650MG SUPPOSITORY) 650 mg Q6H PRN RC FEVER / MILD PAIN 1-3 IF NPO 02/28/25 00:30 03/30/25 00:29 Albuterol Sulfate (Proventil 0.083% 2.5mg/3ml) 2.5 mg [id number] IH 02/28/25 01:00 03/30/25 00:59 02/28/25 11:10 2.5 MG Azithromycin 250 ml @ 250 mls/hr Q24H IVPB 02/27/25 19:00 03/09/25 18:59 02/27/25 20:18 250 MLS/HR Budesonide (Pulmicort 0.5 Mg/2ml) 0.5 mg BIDRESP IH 02/28/25 01:00 03/30/25 00:59 02/28/25 06:32 0.5 MG Ceftriaxone Sodium (ROCEphine 1G INJ) 1 gm DAILY08 IVPB 02/28/25 08:00 03/10/25 07:59 Dexamethasone Sodium Phosphate (dexaMETHasone 4MG/ML 1ML VIAL) 6 mg Q24H IV 02/28/25 05:00 03/30/25 04:59 02/28/25 06:17 6 MG Docusate Sodium (COLace 100MG CAP) 100 mg BID PRN PO c 02/28/25 00:30 03/30/25 00:29 Doxycycline Hyclate 250 ml @ 125 mls/hr Q12H IV 02/28/25 09:00 02/28/25 09:15 DC Famotidine (Pepcid 20mg Tab) 20 mg BID PO 02/28/25 09:00 03/30/25 08:59 02/28/25 10:46 20 MG Guaifenesin/ Codeine Phosphate (RobiTUSSin AC 5 ML SYRUP) 15 ml Q6H PRN PO COUGH 02/28/25 05:00 03/30/25 04:59 Heparin Sodium/ Dextrose 250 ml @ 0 mls/hr PROTOCOL IV 02/28/25 07:00 03/30/25 06:59 02/28/25 11:50 9.4 MLS/HR Insulin Human Regular (humuLIN R 100 UNIT/ML 3ML) INSULIN SLIDING SCAL... ACHS SQ 02/28/25 07:30 03/30/25 07:29 Ipratropium Gerald (AtrovENT UD) 0.5 mg [id number] IH 02/28/25 01:00 03/30/25 00:59 02/28/25 11:10 0.5 MG Labetalol HCl (TRANdate 20MG SYG) 10 mg Q2H PRN IV SBP GREATER THAN 160 02/28/25 00:30 03/30/25 00:29 Lactulose (Constulose 20gm/ 30ml Udcup) 20 gm Q6H PRN PO CONSTIPATION 02/28/25 00:30 03/30/25 00:29 Ondansetron HCl (zoFRAN 4MG INJ) 4 mg Q6H PRN IVP NAUSEA/VOMITING 02/28/25 00:30 03/30/25 00:29 Temazepam (restORIL 15 MG CAP) 15 mg HS PRN PO INSOMNIA/SLEEP 02/28/25 00:30 03/30/25 00:29 DIAGNOSTICS / RADIOLOGY: PATIENT: LORNE PENALOZA MR#: [id number] : 1955 SEX: M AGE: 69 LOCATION: [facility] ORDER 1824 STATUS: REG ER REPORT#: [id number] SERVICE 1758 REASON: cough ORDERING PHYSICIAN: BANG RICH MD PROCEDURE: CXR1VW - CHEST 1VW CHEST 1VW HISTORY: Fall COMPARISON: 11/21/2024 FINDINGS: A frontal projection of the chest was obtained. Extensive left lung pulmonary infiltrates are seen. Mild right lower lung pulmonary infiltrates are seen. The heart is borderline enlarged. Degenerative changes are seen. Postop changes are seen about the spine. No evidence of aortic calcification is seen. IMPRESSION: 1. Extensive left lung pulmonary infiltrates are seen. Mild right lower lung pulmonary infiltrates are seen. DICTATED BY: OUMAR COUCH MD DATE: 02/27/251924 ELECTRONICALLY SIGNED BY: OUMAR COUCH MD DATE: 02/27/251929 PATIENT: LORNE PENALOZA MR#: [id number] : 1955 SEX: M AGE: 69 [facility] STATUS: ADM IN REPORT#: [id number] SERVICE 224 REASON: dyspnea ORDERING PHYSICIAN: KELLEE JOHNSON [employer]UE LINE [employer]IMMER PROCEDURE: CHES PE - CT CHEST PE PROTOCOL WWO CONT CT CHEST PE PROTOCOL WWO CONT HISTORY: Dyspnea COMPARISON: 04/01/2023 TECHNIQUE: CT angiography of the chest was performed. The study was performed using angiographic technique with maximum intensity projection reconstruction images. Patient was given 75 cc of Omnipaque through intravenous route. FINDINGS: No CT evidence of filling defect is seen to suggest pulmonary embolus. No CT evidence of aortic dissection is seen. Small bilateral pleural effusions are seen. Bilateral lower lung pulmonary acute process in the left more than right. There are bilateral interstitial fibrosis and bronchiectasis. No CT evidence of pleural effusion or pericardial effusion is seen. The heart is enlarged. Coronary arterial calcifications are seen. No evidence of adrenal mass is seen. Degenerative changes of the spine are noted. IMPRESSION: 1. No CT evidence of acute pulmonary embolus is seen. Small bilateral pleural effusions. Bilateral lower lung infiltrates. ASSESSMENT: Acute hypoxemic respiratory failure, POA Bilateral interstitial fibrosis and bronchiectasis, per CT on 02/27/2025 Small bilateral pleural effusions, POA, per CT on 02/27/25 Bilateral lower lung infiltrate, per CT on 02/27/25 Non occlusive thrombus of GSV as per Doppler on 02/27/25 Coronary arterial calcifications Elevated D-dimer, PE was ruled out by CT on 02/27/25 Elevated BNP at 105 HX of Renal cancer and bone Mets Hypertension Hypercholesterolemia PLAN: Bilateral lower lung infiltrate, per CT Acute hypoxemic respiratory failure, POA Small bilateral pleural effusions, POA, per CT *Continue with Ceftriaxone 1g and Azithromycin 500mg IV as ordered. * Continue with Robitussin DM as needed cough. -Continue with Decadron 6 mg IV daily. *Supplemental oxygen as needed. *BiPAP as necessary for respiratory distress *Titrate Fio2 to keep Spo2> or = 90% *DuoNeb and CPT as needed *IS hourly while awake for pulmonary hygiene *Out of bed to chair as tolerated. *Maintain aspiration precautions at all times. Non occlusive thrombus of GSV as per Doppler on 01/27/25 *Continue with Heparin 64147 units IV as ordered *Consult placed for Oncology for anticoagulation recommendations. *Elevated D-dimer 2117. PE ruled out by CT chest on 02/27/25 Hypertension *Follow hemodynamics. *Vital signs per facility protocol GI and DVT prophylaxis -Additional orders per hospital course. ATTESTATION BY PHYSICIAN I have seen and examined the patient. I reviewed the documentation, medical decision making, and treatment plan as noted by the resident provider above. I agree with the findings and plan of care. Ish Thomas MD OBI,DERECK Holt MD Feb 28, 2025 13:08
--- NOTE | 2025-02-28 13:48 | HP ---
ADMISSION CC: History of renal cancer with bone metastasis HPI: Patient is a 69-year-old male with a past medical history of a renal carcinoma with bone metastasis, hypercholesteremia, and hypertension who presented to [facility] ED for evaluation of persistent cough. Patient was being followed by his PCP, who diagnosed him with pneumonia three weeks ago. Patient reports having a persistent cough for the last 3 weeks. Labs in the emergency department showed a troponin within normal limits, a D-dimer of 2118, BNP of 105. ABG was done, and showed a PO2 80.9 on room air. Oxygen saturation was 96% on room air. CT scan of the hcest showed small bilateral pleural effusions. Bilateral lower lung pulmonary acute process in the left more than right, there are bilateral interstitial fibrosis and bronchiectasis. No CT evidence of pleural effusion or pericardial effusion is seen. The heart is enlarged. Coronary arterial calcifications are seen. No evidence of adrenal mass is seen. Degenerative changes of the spine. The impression of the CT chest reports no CT evidence of acute pulmonary embolus is seen, small bilateral pleural effusions, bilateral lower lung infiltrates. A venous doppler showed evidence of a nonocclusive t hrombosis in the great saphenous vein bilaterally. Patient was started on a heparin drip. Heme/onc was consulted for anticoagulation recommendation in patient with bone metastasis and for history of metastatic renal cancer. ED provider request patient be admitted with the diagnosis of pneumonia involving left lung, cavitary pneumonia, history of possible lung cancer. HISTORY PHM: Metastatic renal carcinoma with bone metastasis, hypercholesterolemia, hypertension PSH: Back surgery SH: Patient denies alcohol, tobacco, illicit drug use. FH: Noncontributory ALLERGIES: Coded Allergies: No Known Allergies (Unverified Allergy, Unknown, 04/01/23) REVIEW OF SYSTEMS CONSTITUTIONAL: No FEVER, No SWEATS, No CHILLS, No WEIGHT LOSS HEENT: No JAUNDICE, No SORE THROAT, No SINUS PRESSURE, No VISION CHANGES RESPIRATORY: COUGH CARDIOVASCULAR: No PALPATIONS, No DYSPNEA ON EXERTION, No SYNCOPE GASTROINTESTINAL: NAUSEA; No NAUSEA; VOMITING; No VOMITING, No DIARRHEA, No DYSPHAGIA, No CONSTIPATION, No ABDOMINAL PAIN, No HEMATEMESIS, No HEMATOCHEZIA, No MELENA GENITOURINARY: No DYSURIA, No HEMATURIA HEMATOLOGIC/LYMPHATIC: No EASY BRUISING, No CERVICAL ADENOPATHY, No AXILLARY ADENOPATHY, No INGUINAL ADENOPATHY MUSCULOSKELETAL: No BONE PAIN, No MASS, No NORMAL RANGE OF MOTION SKIN/BREASTS: No BREAST MASS, No NIPPLE INVERSION, No RASH NEUROLOGICAL: No WEAKNESS-EXTREMETIES, No DIPLOPIA, No NUMBNESS, No TINGLING PSYCHOLOGICAL: No SUICIDAL IDEATION PHYSICAL EXAM VITALS: Vital Signs Date Time Temp Pulse Resp B/P (MAP) Pulse Ox O2 Delivery O2 Flow Rate FiO2 02/28/25 12:26 98.1 65 16 138/60 98 Room Air* 0 21 GENERAL: ALERT, ORIENTED, APPEARS-NO ACUTE DISTRESS EYES: SCLERAE ANICTERIC, PUPILS EQUAL/REACTIVE; No EXTRAOCULAR MUSCLES INTCT ENT/NECK: ORAL MUCOSA W/O LESIONS, OROPHARYNX IS CLEAR, NECK SUPPLE W/O MASSES RESPIRATORY: LUNGS CLEAR-AUSC/PERCUS CARDIOVASCULAR: REGULAR RATE, REGULAR RHYTHM GASTROINTESTINAL: ABDOMEN IS SOFT; No TENDER, No DISTENDED, No HEPATOSPLENOMEGALY; BOWEL SOUNDS PRESENT; No PALPABLE MASSES HEMATOLOGY/LYMPHATIC: No CERVICAL ADENOPATHY, No SUPRACLAVICULR ADENOPATHY, No AXILLARY ADENOPATHY, No INGUINAL ADENOPATHY MUSCULOSKELETAL: No CYANOSIS-EXTREMETIES, No CLUBBING, No EDEMA SKIN/BREASTS: No MASSES, No RASH, No HIVES NEUROLOGICAL: GROSSLY INTACT PSYCHOLOGICAL: MINI MENTAL ASSMT INTACT DIAGNOSTIC STUDIES [place] [address] [place] [address] IMAGING REPORT Signed PATIENT: LORNE PENALOZA MR#: [id number] : 1955 SEX: M AGE: 69 LOCATION: EDHIP ORDER 1 STATUS: ADM IN REPORT#: [id number] SERVICE 0 REASON: elevated DDIMER ORDERING PHYSICIAN: KELLEE JOHNSON PROCEDURE: VENOUS NICOLASA - US VENOUS DOPPLER BILATERAL Exam Type: US VENOUS DOPPLER BILATERAL Clinical Information: elevated DDIMER Comparison: None Findings: The examination shows nonocclusive thrombosis of the GSV bilaterally. The rest of the venous structures evaluated shows no evidence of thrombosis. IMPRESSION: Thrombus as noted. DICTATED BY: CARLY BOWIE MD DATE: 02/28/25826 ELECTRONICALLY SIGNED BY: CARLY BOWIE MD DATE: 02/28/25831 [facility] [address] [place], [place] [id number] IMAGING REPORT Signed PATIENT: LORNE PENALOZA MR#: [id number] : 1955 SEX: M AGE: 69 LOCATION: EDHIP ORDER 43 STATUS: ADM IN REPORT#: [id number] SERVICE 39 REASON: dyspnea ORDERING PHYSICIAN: KELLEE JOHNSON SCREEN VENT BINDER PROCEDURE: CHES PE - CT CHEST PE PROTOCOL WWO CONT CT CHEST PE PROTOCOL WWO CONT HISTORY: Dyspnea COMPARISON: 04/01/2023 TECHNIQUE: CT angiography of the chest was performed. The study was performed using angiographic technique with maximum intensity projection reconstruction images. Patient was given 75 cc of Omnipaque through intravenous route. FINDINGS: No CT evidence of filling defect is seen to suggest pulmonary embolus. No CT evidence of aortic dissection is seen. Small bilateral pleural effusions are seen. Bilateral lower lung pulmonary acute process in the left more than right. There are bilateral interstitial fibrosis and bronchiectasis. No CT evidence of pleural effusion or pericardial effusion is seen. The heart is enlarged. Coronary arterial calcifications are seen. No evidence of adrenal mass is seen. Degenerative changes of the spine are noted. IMPRESSION: 1. No CT evidence of acute pulmonary embolus is seen. Small bilateral pleural effusions. Bilateral lower lung infiltrates. CT was performed with one or more following dose reduction techniques: automated exposure control, adjustment of the mA and kv according to patient's size, or use of a iterative reconstruction technique. DICTATED BY: OUMAR COUCH MD DATE: 02/28/2519 ELECTRONICALLY SIGNED BY: OUMAR COUCH MD DATE: 02/28/25 002 [facility] [address] [place] [address] IMAGING REPORT Signed PATIENT: LORNE PENALOZA MR#: [id number] : 1955 SEX: M AGE: 69 LOCATION: EDH ORDER STATUS: REG ER REPORT#: [id number] SERVICE 1758 REASON: cough ORDERING PHYSICIAN: BANG RICH MD PROCEDURE: CXR1VW - CHEST 1VW CHEST 1VW HISTORY: Fall COMPARISON: 11/21/2024 FINDINGS: A frontal projection of the chest was obtained. Extensive left lung pulmonary infiltrates are seen. Mild right lower lung pulmonary infiltrates are seen. The heart is borderline enlarged. Degenerative changes are seen. Postop changes are seen about the spine. No evidence of aortic calcification is seen. IMPRESSION: 1. Extensive left lung pulmonary infiltrates are seen. Mild right lower lung pulmonary infiltrates are seen. DICTATED BY: OUMAR COUCH MD DATE: 02/27/251924 ELECTRONICALLY SIGNED BY: OUMAR COUCH MD DATE: 02/27/251929 IMPRESSION Renal carcinoma with metastasis to the bone and lungs. DVT in GSV bilaterally as visualized by venous Doppler Hypertension PLAN: Renal carcinoma with metastasis to bone and lung -This patient is an established patient at our clinic. The patient is currently on second line chemotherapy for his renal carcinoma, due to failing treatment with first line chemotherapy agent. It is recommended to discontinue chemotherapy while being treated in the hospital. -The cavitary lesion in the left upper lobe of the lung seen in PET scan is most consistent with metastatic disease from the patients known renal carcinoma. Given this patients oncologic history and the radiographic appearance, this lesion is more accurately attributed to metastatic spread rather than an infectious process. DVT in GSV bilaterally as visualized by venous Doppler -Recommend anticoagulation with Eliquis 10 mg BID for 1 week, followed by 5 mg thereafter. Hypertension -Currently not on antihypertensive medication. Continue to follow vital signs and adjust hypertensive regimen as needed per primary. ALYSSA RIVERA MD Feb 28, 2025 13:48
[2025-02-28 16:46] LABS: INR 1.15 (0.85-1.15)
[2025-02-28 16:47] LABS: PARTIAL THROMBOPLASTIN TIME 71.7 SEC (26.3-35.5)
--- NOTE | 2025-02-28 17:19 | NUR ---
REPORT GIVEN TO LIZETH
--- NOTE | 2025-02-28 17:20 | NUR ---
MEDS NOT RECONCILED THE LIST FAMILY MEMBER GAVE HAS MISSING DOSA Addendum: 02/28/25 at 1721 by MILAGRO *MISSING DOSES & FREQ
--- NOTE | 2025-02-28 17:50 | NUR ---
PATIENT ROOM AIR STATING 96%. NO RESPIRATORY DISTRESS NOTE.
[2025-02-28] MEDS: ceFEPime HCL 1 GM VIAL IVPB SCH (17:58)
[2025-02-28] MEDS: IpraTROPium/alBUTERol SULFATE 3 ML SOLUTION IH SCH (19:07)
[2025-02-28] MEDS: metRONIDazole 500MG/100ML BAG 100 ML IVPB SCH (21:48)
[2025-02-28 22:03] LABS: INR 1.09 (0.85-1.15); PROTHROMBIN TIME 11.5 SEC (9.6-11.6)
[2025-02-28 22:04] LABS: PARTIAL THROMBOPLASTIN TIME 46.6 SEC (26.3-35.5)
[2025-02-28] MEDS: SODIUM CHLORIDE 3% FOR INHALATION 4 ML/AMP VIAL.NEB IH ONE (23:43)
[2025-03-01] VITALS (10 sets, daily range): BP systolic 112–136; BP diastolic 59–70; PULSE 80–99; RESP 16–22; TEMP 98–98.9; O2SAT 95–98
[2025-03-01 04:05] LABS: HEMATOCRIT 24.3 % (42-54); MEAN CORPUSCULAR HEMOGLOBIN 27.6 pg (27.0-33.0); MEAN CORPUSCULAR HGB CONC 29.6 g/dL (32.0-36.0); MEAN CORPUSCULAR VOLUME 93.1 fL (79-99); RED BLOOD CELL COUNT(AUTO) 2.61 MIL/uL (4.50-6.20); RED CELL DISTRIBUTION WIDTH 16.4 % (11.0-15.5); WHITE BLOOD COUNT (AUTO) 10.2 K/uL (4.8-10.8)
[2025-03-01 04:19] LABS: CREATININE 0.5 mg/dL (0.5-1.3); MAGNESIUM 1.8 mg/dL (1.80-2.40); PHOSPHORUS 2.7 mg/dL (2.5-4.9)
[2025-03-01] MEDS: guaiFENesin-coDEINE 5 ML SYRUP PO PRN (04:48)
[2025-03-01] MEDS: PoTASSium BIcarbonate/CIT AC 25 MEQ TABLET.EFF PO ONE (05:37)
[2025-03-01] MEDS: MAGNESIUM 2GM PREMIX 50ML 50 ML IV PRN (05:56)
[2025-03-01] MEDS: SODIUM CHLORIDE 3% FOR INHALATION 4 ML/AMP VIAL.NEB IH ONE ×2 (06:25→14:29)
--- NOTE | 2025-03-01 10:31 | PN ---
[facility] PROGRESS NOTE Date of Service: Mar 01, 2025 Time of Service: 10:24 SUBJECTIVE: HPI Patient is a 69-year-old male with a history of a kidney cancer, bone metastasis, hypercholesteremia, hypertension who presented to [facility] ED for evaluation of persistent cough. Per patient's was seen by his PCP and was diagnosed with a pneumonia. about 3 weeks ago , however the cough never went away. Cough is non productive and associated with shortness of breath. Labs done in the ED :Troponin WNL. D-dimer 8. BNP 105. ABG: PO2 89 on room air. O2 sats 96% on room air. CT PE protocol: No CT evidence of acute pulmonary embolus is seen. Small bilateral pleural effusions. Bilateral lower lung infiltrates. Chest x ray shows extensive left lung pulmonary infiltrates and mild right lower lobe pulmonary infiltrates. Venous doppler showed an occlusive thrombosis of the GSV bilaterally. Patient was started on Rocephin, Zithromax, NS1 L, and DuoNeb treatments. 02/28/2025: Lying in bed at the time of evaluation. Alert and oriented and in no obvious distress. Patient continues with nonproductive cough. Denies any fever, chills, chest pain, or shortness of breath. Vital signs: T 98.1, P 68, R 16, BP 101/51, oxygen saturation 96%. Patient had elevated D-dimers 2117however, CT of the chest showed no evidence of an acute PE. Continue with Ceftriaxone1 g daily, Azithromycin 500mg IV as ordered. Patient with a venous Doppler which shows nonocclusive thrombosis of the Great saphenous vein bilateral. Currently on heparin 24580 units IV. Hematology oncology consult placed for recommendations for anticoagulation in a patient with bone metastasis. Pending their recommendations. Consult also placed for pulmonology. 03/01/2025: Lying in bed at the time of evaluation. Alert and oriented and in no obvious distress. Patient states that he feels a lot better today. Continues with nonproductive cough. Denies any fever, chills, chest pain, shortness of breath. Vital sounds: T 99, P 87,R 22, BP 112/59, O2 95% on RA. Labs: WBC 10.2, Hb 7.2 down from 8.7, Chem: Sodium 133, K 3 . Will replace potassium as per protocol. Blood cultures showed no growth after 24 hrs. AFB cultures with smear ordered. Pending results. Patient is currently on airborne precautions. Continue with Metronidazole 500 mg Q 8h and Cefepime 1g q8h as ordered. Hematology oncology consult was placed for recommendations on anticoagulation in a patient with renal carcinoma with bone metastasis. Ordered Eliquis 10 mg b.i.d. x7 days and 5mg thereafter. REVIEW OF SYSTEMS CONSTITUTIONAL: No chills, no fever, no weakness, no diaphoresis, no malaise. HEAD/FACE: No signs of trauma. EENT: No eye pain, no blurred vision, no tearing, no double vision, no ear pain, no ear discharge, no nose pain, no nasal congestion, no throat pain, no throat swelling, no mouth pain. RESPIRATORY: Cough , SOB, no stridor, no wheezing. CARDIOVASCULAR: No chest pain, no edema, no palpitations, no syncope. GASTROINTESTINAL: No abdominal pain, no constipation, no diarrhea, no nausea, no vomiting. GENITOURINARY: No abnormal discharge, no dysuria, no frequent urination, no hematuria. No complaints of pain in the genitals. MUSCULOSKELETAL: No back pain, no gout, no joint pain, no joint swelling, no muscle pain, no muscle stiffness, no neck pain. INTEGUMENTARY: No change in color, no change in hair/nails, no dryness, no lesion, no lumps, no rash. NEUROLOGICAL: No anxiety, not depressed, no emotional problem, no headache, no numbness, no pre-existing deficit, no history of seizures, no tremors, no weakness. HEMATOLOGIC/LYMPHATIC: Not anemic, no history of blood clots, no apparent bleeding, no bruising, glands not swollen. PHYSICAL EXAM GENERAL APPEARANCE: The patient is awake, alert, and oriented, in no acute cardiopulmonary distress. NEUROLOGICAL: Cranial nerves II-XII grossly intact. Motor is 5/5 in bilateral upper and lower extremities proximal to distal. No sensory deficits. HEENT: Face is symmetric. Pupils are equal and reactive. Extraocular movements are intact. NECK: Supple. No JVD. No thyromegaly. No submental, submandibular, pre- /postauricular, occipital or supraclavicular lymphadenopathy. CHEST: Normal chest expansion. No Telemetry. LUNGS: Diminished breath sounds bilaterally, presence of rhonchi CARDIOVASCULAR: Regular. S1 and S2 normal. No appreciable rubs, murmurs or gallops. ABDOMEN: Soft, nontender, and nondistended. There is no rebound, voluntary guarding, or rigidity. : Deferred. No Zamarripa. EXTREMITIES: Non-edematous and not cyanotic. No clubbing. Good capillary refill. SKIN: No skin breakdown. Vital Signs (last 8hr) Date Time Temp Pulse Resp B/P (MAP) Pulse Ox O2 Delivery O2 Flow Rate FiO2 03/01/25 07:51 99.0 87 22 112/59 95 Room Air 03/01/25 06:31 88 20 N/A Room Air 21 03/01/25 06:30 88 20 03/01/25 04:00 98.1 87 20 122/64 96 Room Air LABS: Laboratory: Test 03/01/25 05:12 03/01/25 03:57 02/28/25 21:45 02/28/25 09:00 Range/Units Whole Blood Glucose 128 H 70-110 MG/DL White Blood Count 10.2 4.8-10.8 K/uL Red Blood Count 2.61 L 4.50-6.20 MIL/uL Hemoglobin 7.2 L 14.0-18.0 g/dL Hematocrit 24.3 L 42-54 % Mean Corpuscular Volume 93.1 79-99 fL Mean Corpuscular Hemoglobin 27.6 27.0-33.0 pg Mean Corpuscular Hemoglobin Concent 29.6 L 32.0-36.0 g/dL Red Cell Distribution Width 16.4 H 11.0-15.5 % Platelet Count 368 # 130-400 K/uL Mean Platelet Volume 8.1 7.5-10.5 fL Nucleated Red Blood Cells 0.0 0.0-0.19 % Activated Partial Thromboplast Time 49.3 H 26.3-35.5 SEC Sodium Level 133 L 136-145 mmol/L Potassium Level 3.0 *L 3.5-5.1 mmol/L Chloride Level 100 L 101-111 mmol/L Carbon Dioxide Level 26 21-32 mmol/L Blood Urea Nitrogen 6 L 7-18 mg/dL Creatinine 0.5 0.5-1.3 mg/dL Glomerular Filtration Rate Calc 109 >90 mL/min Random Glucose 118 H 70-105 mg/dL Total Calcium 8.4 L 8.5-10.1 mg/dL Phosphorus Level 2.7 2.5-4.9 mg/dL Magnesium Level 1.80 1.80-2.40 mg/dL Prothrombin Time 11.5 9.6-11.6 SEC Prothromb Time International Ratio 1.09 0.85-1.15 Urine Color YELLOW YELLOW Urine Appearance CLEAR CLEAR Urine pH 7.5 5.0-8.0 Urine Specific Gilman 1.355 1.001-1.031 Urine Protein 10 H NEGATIVE mg/dL Urine Glucose (UA) NEGATIVE NEGATIVE mg/dL Urine Ketones 10 H NEGATIVE mg/dL Urine Occult Blood NEGATIVE NEGATIVE Urine Nitrate NEGATIVE NEGATIVE Urine Bilirubin NEGATIVE NEGATIVE mg/dL Urine Urobilinogen 3 H 0.2-1.0 mg/dL Urine Leukocyte Esterase NEGATIVE NEGATIVE Kenneth/uL Urine RBC 0-1 0-1 /HPF Urine WBC None 0-1 /HPF Urine Squamous Epithelial Cells RARE 0-2 /HPF Urine Bacteria None None Seen /HPF Test 02/28/25 00:54 02/27/25 23:24 02/27/25 18:25 02/27/25 18:12 Range/Units D-Dimer Quantitative (PE/DVT) 2118 *H 0-500 ng/mL Blood Gas Specimen Type Arterial Arterial Blood pH 7.472 H 7.350-7.450 Arterial Blood Partial Pressure CO2 37 35-48 mmHg Arterial Blood Partial Pressure O2 80.9 L 83.0-108.0 mmHg Arterial Blood HCO3 26.5 21.0-28.0 mmol/L Arterial Blood Oxygen Saturation 95.4 94.0-98.0 % Arterial Blood Base Excess 2.8 -2.0-3.0 mmol/L Hemoglobin (Blood Gas) 8.3 L 13.5-17.5 g/dL Sodium (Blood Gas) 133 L 136-145 MMOL/L Bedside Potassium (Blood Gas) 3.3 L 3.4-4.5 MMOL/L Bedside Chloride (Blood Gas) 100 98-107 MMOL/L Bedside Glucose (Blood Gas) 102 H 65-95 MG/DL Bedside Ionized Calcium (Blood Gas) 1.15 1.15-1.33 MMOL/L Bedside Lactic Acid (Blood Gas) 0.91 H 0.36-0.75 MMOL/L Blood Gas Temperature 37.0 35.5-37.0 CELSIUS Blood Gas Vent Mode RA ROOM AIR FiO2 21.0 % Blood Gas Specimen Comment RR RN Influenza Type A Antigen Negative For Type A NEGATIVE Influenza Type B Antigen Negative For Type B NEGATIVE SARS-CoV-2, RNA, NAAT NEGATIVE SARS CoV-2 NEGATIVE Immature Granulocyte % (Auto) 1.9 H 0-1 % Neutrophils (%) (Auto) 74.8 40.0-77.0 % Lymphocytes (%) (Auto) 13.4 L 21.0-51.0 % Monocytes (%) (Auto) 7.1 3.0-13.0 % Eosinophils (%) (Auto) 2.5 0.0-8.0 % Basophils (%) (Auto) 0.3 0.0-5.0 % Neutrophils # (Auto) 7.4 1.8-7.7 K/uL Lymphocytes # (Auto) 1.3 1.0-4.8 K/uL Monocytes # (Auto) 0.7 0.1-1.0 K/uL Eosinophils # (Auto) 0.25 0.00-0.70 K/uL Basophils # (Auto) 0.03 0.00-0.20 K/uL Absolute Immature Granulocyte (auto 0.19 0-1 K/uL Red Blood Cell Morphology See comments Lactic Acid Level 1.5 0.8-2.5 mmol/L Total Bilirubin 0.5 0.2-1.0 mg/dL Aspartate Amino Transf (AST/SGOT) 16 10-37 U/L Alanine Aminotransferase (ALT/SGPT) 11 L 12-78 U/L Alkaline Phosphatase 61 50-136 U/L Troponin I High Sensitivity 15 4-75 ng/L B-Type Natriuretic Peptide 105 H 0-100 pg/mL Total Protein 7.6 6.0-8.3 g/dL Albumin 2.2 L 3.5-5.0 g/dL Current Medications Medications (Trade) Dose Ordered Sig/Zoe Route PRN Reason Start Time Stop Time Status Last Admin Dose Admin Acetaminophen (TYLenol 325MG TAB) 650 mg Q6H PRN PO FEVER/MILD PAIN LEVEL 1-3 02/28/25 00:30 03/30/25 00:29 Acetaminophen (TYLenol 650MG SUPPOSITORY) 650 mg Q6H PRN RC FEVER / MILD PAIN 1-3 IF NPO 02/28/25 00:30 03/30/25 00:29 Albuterol (DUOneb) 1 UDVIAL [id number] 02/28/25 18:00 03/30/25 17:59 03/01/25 06:25 1 UDVIAL Albuterol Sulfate (Proventil 0.083% 2.5mg/3ml) 2.5 mg [id number] 02/28/25 01:00 03/30/25 00:59 02/28/25 11:10 2.5 MG Azithromycin 250 ml @ 250 mls/hr Q24H IVPB 02/27/25 19:00 02/28/25 17:03 DC 02/27/25 20:18 250 MLS/HR Budesonide (Pulmicort 0.5 Mg/2ml) 0.5 mg BIDRESP 02/28/25 01:00 03/30/25 00:59 03/01/25 06:28 0.5 MG Cefepime HCl (MAXipime 1 GM vial) 1 gm Q8H IVPB 02/28/25 17:30 03/10/25 17:29 03/01/25 10:18 1 GM Ceftriaxone Sodium (ROCEphine 1G INJ) 1 gm DAILY08 IVPB 02/28/25 08:00 02/28/25 17:07 DC Dexamethasone Sodium Phosphate (dexaMETHasone 4MG/ML 1ML VIAL) 6 mg Q24H IV 02/28/25 05:00 03/30/25 04:59 03/01/25 04:47 6 MG Docusate Sodium (COLace 100MG CAP) 100 mg BID PRN PO c 02/28/25 00:30 03/30/25 00:29 Doxycycline Hyclate 250 ml @ 125 mls/hr Q12H IV 02/28/25 09:00 02/28/25 09:15 DC Doxycycline Hyclate 250 ml @ 125 mls/hr Q12H IV 02/28/25 17:30 02/28/25 17:12 DC Famotidine (Pepcid 20mg Tab) 20 mg BID PO 02/28/25 09:00 03/30/25 08:59 03/01/25 10:18 20 MG Guaifenesin/ Codeine Phosphate (RobiTUSSin AC 5 ML SYRUP) 15 ml Q6H PRN PO COUGH 02/28/25 05:00 03/30/25 04:59 03/01/25 04:48 15 ML Heparin Sodium/ Dextrose 250 ml @ 0 mls/hr PROTOCOL IV 02/28/25 07:00 03/30/25 06:59 02/28/25 11:50 9.4 MLS/HR Insulin Human Regular (humuLIN R 100 UNIT/ML 3ML) INSULIN SLIDING SCAL... ACHS SQ 02/28/25 07:30 03/30/25 07:29 Ipratropium Fields (AtrovENT UD) 0.5 mg [id number] IH 02/28/25 01:00 03/30/25 00:59 02/28/25 11:10 0.5 MG Labetalol HCl (TRANdate 20MG SYG) 10 mg Q2H PRN IV SBP GREATER THAN 160 02/28/25 00:30 03/30/25 00:29 Lactulose (Constulose 20gm/ 30ml Udcup) 20 gm Q6H PRN PO CONSTIPATION 02/28/25 00:30 03/30/25 00:29 Magnesium Sulfate 50 ml @ 0 mls/hr PROTOCOL PRN IV MAGNESIUM PROTOCOL 03/01/25 05:00 03/31/25 04:59 03/01/25 05:56 25 MLS/HR Metronidazole/ Sodium Chloride 100 ml @ 100 mls/hr Q8H6 IVPB 02/28/25 22:00 03/10/25 21:59 03/01/25 04:47 100 MLS/HR Ondansetron HCl (zoFRAN 4MG INJ) 4 mg Q6H PRN IVP NAUSEA/VOMITING 02/28/25 00:30 03/30/25 00:29 Temazepam (restORIL 15 MG CAP) 15 mg HS PRN PO INSOMNIA/SLEEP 02/28/25 00:30 03/30/25 00:29 DIAGNOSTICS / RADIOLOGY: [ ] ASSESSMENT: Acute hypoxemic respiratory failure, POA Bilateral interstitial fibrosis and bronchiectasis, per CT on 02/27/2025 Small bilateral pleural effusions, POA, per CT Bilateral lower lung infiltrate, per CT Non occlusive thrombus of GSV as per Doppler on 02/27/25 Coronary arterial calcifications Elevated D-dimer, PE was ruled out by CT Elevated BNP at 105 Hx Renal cancer and bone Mets Hypertension Hypercholesterolemia PLAN: Bilateral lower lung infiltrate, per CT Acute hypoxemic respiratory failure, POA Small bilateral pleural effusions, POA, per CT *AFB cultures and smear ordered. Pending results. *Continue with air borne precautions as ordered. *Continue with Metronidazole 500mg q8h and Cefepime 1g q8h IV as ordered. * Continue with Robitussin DM as needed cough. -Continue with Decadron 6 mg IV daily. *Supplemental oxygen as needed. *BiPAP as necessary for respiratory distress *Titrate Fio2 to keep Spo2> or = 90% *DuoNeb and CPT as needed *IS hourly while awake for pulmonary hygiene *Out of bed to chair as tolerated. *Maintain aspiration precautions at all times. Non occlusive thrombus of GSV as per Doppler on 01/27/25 *Eliquis 10mg bid x 7days and 5 mg thereafter recommended for home anticoagulation *Continue with Heparin 30096 units IV as ordered *Hematology/Oncology is on the case. *Elevated D-dimer 2117. PE ruled out by CT chest on 02/27/25 Hypertension *Follow hemodynamics. *Vital signs per facility protocol GI and DVT prophylaxis -Additional orders per hospital course. ATTESTATION BY PHYSICIAN I have seen and examined the patient. I reviewed the documentation, medical decision making, and treatment plan as noted by the resident provider above. I agree with the findings and plan of care. Ish Thomas MD OBI,DERECK Holt MD Mar 01, 2025 10:31
[2025-03-01] MEDS ORDERED: LEVO175C3 PO (11:49)
[2025-03-01] MEDS ORDERED: AMOX1TAB16 PO (11:50)
--- NOTE | 2025-03-01 11:56 | PN ---
[facility] PROGRESS NOTE Date Patient Seen: Mar 01, 2025 Time of Visit: 11:55 Supervising Physician: [ ] Primary Care Physician: Dr.Julio Laura Strange Outpatient Specialists: [ ] Inpatient Consults: Dr. Natalie Hand (hematology/oncology) PROBLEM LIST: 1. Acute hypoxemic respiratory failure 2. Pneumonia multilobular: Right lower lobe, left upper lobe 3. Elevated D-dimer 8, CT chest ruled out PE 4. Thrombus bilateral GSV, patient is started on heparin drip anticoagulation, in case bronchoscopy for confirmation of TB 5. Renal cancer with bone Mets 6. Hypertension 7. Daily AFB sputums to rule out TB INTERVAL HISTORY: [ ] REVIEW OF SYSTEMS: 12 point ROS reviewed with patient. Pertinent positives mentioned above. Otherwise negative. PHYSICAL EXAM: GENERAL: alert, weak, awake oriented x 3 HEENT: EOMI, Sclera non icteric, moist mucosa NECK: Supple, no JVD, trachea midline LUNGS: Clear breath sounds over diminished bilaterally. Rhonchi and inspiratory wheezes throughout. No stridor present. Patient require supplemental oxygen. HEART: Regular rate and rhythm. Normal S1 and S2, without murmurs ABD: Abdomen soft, nontender. Bowel sounds present EXT: No clubbing cyanosis or edema NEURO: Alert and oriented to person, follows commands Vital Signs (last 8hr) Date Time Temp Pulse Resp B/P (MAP) Pulse Ox O2 Delivery O2 Flow Rate FiO2 03/01/25 11:41 98.6 89 20 118/64 96 03/01/25 10:56 85 20 03/01/25 07:51 99.0 87 22 112/59 95 Room Air 03/01/25 06:31 88 20 N/A Room Air 21 03/01/25 06:30 88 20 03/01/25 04:00 98.1 87 20 122/64 96 Room Air LABS: Hematology Labs: Test 03/01/25 03:57 02/27/25 18:12 Range/Units White Blood Count 10.2 4.8-10.8 K/uL Red Blood Count 2.61 L 4.50-6.20 MIL/uL Hemoglobin 7.2 L 14.0-18.0 g/dL Hematocrit 24.3 L 42-54 % Mean Corpuscular Volume 93.1 79-99 fL Mean Corpuscular Hemoglobin 27.6 27.0-33.0 pg Mean Corpuscular Hemoglobin Concent 29.6 L 32.0-36.0 g/dL Red Cell Distribution Width 16.4 H 11.0-15.5 % Platelet Count 368 # 130-400 K/uL Mean Platelet Volume 8.1 7.5-10.5 fL Nucleated Red Blood Cells 0.0 0.0-0.19 % Immature Granulocyte % (Auto) 1.9 H 0-1 % Neutrophils (%) (Auto) 74.8 40.0-77.0 % Lymphocytes (%) (Auto) 13.4 L 21.0-51.0 % Monocytes (%) (Auto) 7.1 3.0-13.0 % Eosinophils (%) (Auto) 2.5 0.0-8.0 % Basophils (%) (Auto) 0.3 0.0-5.0 % Neutrophils # (Auto) 7.4 1.8-7.7 K/uL Lymphocytes # (Auto) 1.3 1.0-4.8 K/uL Monocytes # (Auto) 0.7 0.1-1.0 K/uL Eosinophils # (Auto) 0.25 0.00-0.70 K/uL Basophils # (Auto) 0.03 0.00-0.20 K/uL Absolute Immature Granulocyte (auto 0.19 0-1 K/uL Red Blood Cell Morphology See comments Chemistry Labs: Test 03/01/25 11:10 03/01/25 03:57 02/27/25 18:12 Range/Units Whole Blood Glucose 185 H 70-110 MG/DL Sodium Level 133 L 136-145 mmol/L Potassium Level 3.0 *L 3.5-5.1 mmol/L Chloride Level 100 L 101-111 mmol/L Carbon Dioxide Level 26 21-32 mmol/L Blood Urea Nitrogen 6 L 7-18 mg/dL Creatinine 0.5 0.5-1.3 mg/dL Glomerular Filtration Rate Calc 109 >90 mL/min Random Glucose 118 H 70-105 mg/dL Total Calcium 8.4 L 8.5-10.1 mg/dL Phosphorus Level 2.7 2.5-4.9 mg/dL Magnesium Level 1.80 1.80-2.40 mg/dL Lactic Acid Level 1.5 0.8-2.5 mmol/L Total Bilirubin 0.5 0.2-1.0 mg/dL Aspartate Amino Transf (AST/SGOT) 16 10-37 U/L Alanine Aminotransferase (ALT/SGPT) 11 L 12-78 U/L Alkaline Phosphatase 61 50-136 U/L Troponin I High Sensitivity 15 4-75 ng/L B-Type Natriuretic Peptide 105 H 0-100 pg/mL Total Protein 7.6 6.0-8.3 g/dL Albumin 2.2 L 3.5-5.0 g/dL Coagulation Labs: Test 03/01/25 03:57 02/28/25 21:45 02/28/25 00:54 Range/Units Activated Partial Thromboplast Time 49.3 H 26.3-35.5 SEC Prothrombin Time 11.5 9.6-11.6 SEC Prothromb Time International Ratio 1.09 0.85-1.15 D-Dimer Quantitative (PE/DVT) 2118 *H 0-500 ng/mL DIAGNOSTICS / RADIOLOGY RESULTS: [ ] PLAN NEURO: Minimize central acting medications as possible. Maintain fall precautions, adequate lighting during the day PULMONARY: Supplemental 02 as needed. Maintain aspiration precautions at all times Maintain O2 saturation greater than 92% CARDIOVASCULAR: Follow hemodynamics. Vital signs per facility protocol GI & NUTRITION: Continue with nutritional support. Continue stool softeners and laxatives as needed. KIDNEYS & ELECTROLYTES: Strict monitoring of intake, output and overall fluid balance. Avoid nephrotoxic medications to the extent possible. Medications to be dosed according to renal function. Monitor electrolytes and replace as needed ENDOCRINE: Maintain blood glucose between 100-180 at all times. Hypoglycemia protocol in place INFECTIOUS DISEASE: Trend temperature, WBC and procalcitonin level Follow cultures, deescalate antibiotics as soon as possible. Panculture if new onset fever AFB sputum to be collected on Thursday, and Flagyl 500 mg IV q.8 hours Cefepime 1 g IV q.8 hours ONCOLOGY/HEMATOLOGY/COAGULATION: Monitor for s/s of bleeding Monitor hemoglobin, coagulation studies as needed SKIN: Pressure ulcer prevention per facility protocol Specialty mattress ORTHO/REHAB: Continue PT/OT Prophylaxis: Continue GI and DVT prophylaxis Patient is started on a heparin infusion, in case bronchoscopy is required Code Status: Full Resuscitation Disposition: TBD Other: Total patient care time exceeds 35 minutes excluding all procedures. JOCY FREY NP Mar 01, 2025 11:55
--- NOTE | 2025-03-01 14:45 | NUR ---
BEDSIDE SWALLOW EVAL COMPLETED. No s/s of aspiration. Recommend easy to chew solids d/t GBW, thin liquids and pills whole with liquids as tolerated. Compensatory strategies: 1. sit upright during oral intake COATING MIXER reviewed results and recommendations with patient and nurse Marry. COATING MIXER educated patient on risks and consequences of aspiration. Speech therapy not warranted at this time. All questions answered. Addendum: 03/01/[address] KATELYN CARABALLO Amended: Links added.
--- NOTE | 2025-03-01 16:15 | PN ---
Patient is a 69-year-old male with a past medical history of a renal carcinoma with bone metastasis, hypercholesteremia, and hypertension who presented to [facility] for evaluation of persistent cough. Patient was being followed by his PCP, who diagnosed him with pneumonia three weeks ago. Patient reports having a persistent cough for the last 3 weeks. Labs in the emergency department showed a troponin within normal limits, a D-dimer of 2118, BNP of 105. ABG was done, and showed a PO2 80.9 on room air. Oxygen saturation was 96% on room air. CT scan of the hcest showed small bilateral pleural effusions. Bilateral lower lung pulmonary acute process in the left more than right, there are bilateral interstitial fibrosis and bronchiectasis. No CT evidence of pleural effusion or pericardial effusion is seen. The heart is enlarged. Coronary arterial calcifications are seen. No evidence of adrenal mass is seen. Degenerative changes of the spine. The impression of the CT chest reports no CT evidence of acute pulmonary embolus is seen, small bilateral pleural effusions, bilateral lower lung infiltrates. A venous doppler showed evidence of a nonocclusive thrombosis in the great saphenous vein bilaterally. Patient was started on a heparin drip. Heme/onc was consulted for anticoagulation recommendation in patient with bone metastasis and for history of metastatic renal cancer. ED provider request patient be admitted with the diagnosis of pneumonia involving left lung, cavitary pneumonia, history of possible lung cancer. HISTORY PHM: Metastatic renal carcinoma with bone metastasis, hypercholesterolemia, hypertension PSH: Back surgery SH: Patient denies alcohol, tobacco, illicit drug use. FH: Noncontributory ALLERGIES: Coded Allergies: No Known Allergies (Unverified Allergy, Unknown, 04/01/23) REVIEW OF SYSTEMS CONSTITUTIONAL: No FEVER, No SWEATS, No CHILLS, No WEIGHT LOSS HEENT: No JAUNDICE, No SORE THROAT, No SINUS PRESSURE, No VISION CHANGES RESPIRATORY: COUGH CARDIOVASCULAR: No PALPATIONS, No DYSPNEA ON EXERTION, No SYNCOPE GASTROINTESTINAL: NAUSEA; No NAUSEA; VOMITING; No VOMITING, No DIARRHEA, No DYSPHAGIA, No CONSTIPATION, No ABDOMINAL PAIN, No HEMATEMESIS, No HEMATOCHEZIA, No MELENA GENITOURINARY: No DYSURIA, No HEMATURIA HEMATOLOGIC/LYMPHATIC: No EASY BRUISING, No CERVICAL ADENOPATHY, No AXILLARY ADENOPATHY, No INGUINAL ADENOPATHY MUSCULOSKELETAL: No BONE PAIN, No MASS, No NORMAL RANGE OF MOTION SKIN/BREASTS: No BREAST MASS, No NIPPLE INVERSION, No RASH NEUROLOGICAL: No WEAKNESS-EXTREMETIES, No DIPLOPIA, No NUMBNESS, No TINGLING PSYCHOLOGICAL: No SUICIDAL IDEATION PHYSICAL EXAM VITALS: Vital Signs Date Time Temp Pulse Resp B/P (MAP) Pulse Ox O2 Delivery O2 Flow Rate FiO2 02/28/25 12:26 98.1 65 16 138/60 98 Room Air* 0 21 GENERAL: ALERT, ORIENTED, APPEARS-NO ACUTE DISTRESS EYES: SCLERAE ANICTERIC, PUPILS EQUAL/REACTIVE; No EXTRAOCULAR MUSCLES INTCT ENT/NECK: ORAL MUCOSA W/O LESIONS, OROPHARYNX IS CLEAR, NECK SUPPLE W/O MASSES RESPIRATORY: LUNGS CLEAR-AUSC/PERCUS CARDIOVASCULAR: REGULAR RATE, REGULAR RHYTHM GASTROINTESTINAL: ABDOMEN IS SOFT; No TENDER, No DISTENDED, No HEPATOSPLENOMEGALY; BOWEL SOUNDS PRESENT; No PALPABLE MASSES HEMATOLOGY/LYMPHATIC: No CERVICAL ADENOPATHY, No SUPRACLAVICULR ADENOPATHY, No AXILLARY ADENOPATHY, No INGUINAL ADENOPATHY MUSCULOSKELETAL: No CYANOSIS-EXTREMETIES, No CLUBBING, No EDEMA SKIN/BREASTS: No MASSES, No RASH, No HIVES NEUROLOGICAL: GROSSLY INTACT PSYCHOLOGICAL: MINI MENTAL ASSMT INTACT 1. Renal cell CA 2. CT scan showing cavitary lesion which presented before consistent with metastatic disease 3. Hypertension 4. Hyperlipidemia 5. Pneumonia 6. Failure to thrive Plan 1.Continue antibiotic as per infectious diseases specialist 2. We will hold chemotherapy treatment while the patient in the hospital 3. Patient will need physical therapy treatment 4. We will know about the cavitary lesion from previous PET CT scan which was consistent with metastatic disease. 5. This patient to be on nebulized treatment with albuterol and Atrovent Vitals/Labs Vital Signs Date Time Temp Pulse Resp B/P (MAP) Pulse Ox O2 Delivery O2 Flow Rate FiO2 03/01/25 11:41 98.6 89 20 118/64 96 03/01/25 07:51 Room Air 03/01/25 06:31 21 02/28/25 20:00 0 Laboratory Tests 03/01/25 03:57 Medications Current Medications Ceftriaxone Sodium 1 gm ONCE ONCE IVPB Last administered on 02/27/25at 20:05; Start 02/27/25 at 19:00; Stop 02/27/25 at 19:01; Status DC Azithromycin 250 ml @ 250 mls/hr Q24H IVPB Last administered on 02/27/25at 20:18; Start 02/27/25 at 19:00; Stop 02/28/25 at 17:03; Status DC Albuterol 1 UDVIAL ONCE ONCE IH Last administered on 02/27/25at 19:39; Start 02/27/25 at 19:30; Stop 02/27/25 at 19:31; Status DC Sodium Chloride 1,000 ml @ 125 mls/hr ONCE ONCE IV Last administered on 02/27/25at 20:19; Start 02/27/25 at 19:30; Stop 02/28/25 at 03:29; Status DC Iohexol 75 ml STK-MED ONCE IV; Start 02/27/25 at 23:57; Stop 02/27/25 at 23:57; Status DC Albuterol Sulfate 2.5 mg [id number] IH Last administered on 02/28/25at 11:10; Start 02/28/25 at 01:00; Stop 03/01/25 at 10:47; Status DC Ipratropium [place] 0.5 mg [id number] IH Last administered on 02/28/25at 11:10; Start 02/28/25 at 01:00; Stop 03/01/25 at 10:47; Status DC Famotidine 20 mg BID PO Last administered on 03/01/25at 10:18; Start 02/28/25 at 09:00; Stop 03/30/25 at 08:59 Acetaminophen 650 mg Q6H PRN PO; Start 02/28/25 at 00:30; Stop 03/30/25 at 00:29 Acetaminophen 650 mg Q6H PRN RC; Start 02/28/25 at 00:30; Stop 03/30/25 at 00:29 Lactulose 20 gm Q6H PRN PO; Start 02/28/25 at 00:30; Stop 03/30/25 at 00:29 Docusate Sodium 100 mg BID PRN PO; Start 02/28/25 at 00:30; Stop 03/30/25 at 00:29 Temazepam 15 mg HS PRN PO; Start 02/28/25 at 00:30; Stop 03/30/25 at 00:29 Ondansetron HCl 4 mg Q6H PRN IVP; Start 02/28/25 at 00:30; Stop 03/30/25 at 00:29 Labetalol HCl 10 mg Q2H PRN IV; Start 02/28/25 at 00:30; Stop 03/30/25 at 00:29 Insulin Human Regular INSULIN SLIDING SCAL... ACHS SQ Last administered on 03/01/25at 12:09; Start 02/28/25 at 07:30; Stop 03/30/25 at 07:29 Doxycycline Hyclate 250 ml @ 125 mls/hr Q12H IV; Start 02/28/25 at 09:00; Stop 02/28/25 at 09:15; Status DC Ceftriaxone Sodium 1 gm DAILY08 IVPB; Start 02/28/25 at 08:00; Stop 02/28/25 at 17:07; Status DC Budesonide 0.5 mg BIDRESP IH Last administered on 03/01/25at 06:28; Start 02/28/25 at 01:00; Stop 03/30/25 at 00:59 Guaifenesin/ Codeine Phosphate 15 ml Q6H PRN PO Last administered on 03/01/25at 04:48; Start 02/28/25 at 05:00; Stop 03/30/25 at 04:59 Dexamethasone Sodium Phosphate 6 mg Q24H IV Last administered on 03/01/25at 04:47; Start 02/28/25 at 05:00; Stop 03/30/25 at 04:59 Heparin Sodium/ Dextrose 250 ml @ 0 mls/hr PROTOCOL IV Last administered on 02/28/25at 11:50; Start 02/28/25 at 07:00; Stop 03/30/25 at 06:59 Heparin Sodium (Porcine) 4,000 unit ONCE ONCE IV Last administered on 02/28/25at 11:58; Start 02/28/25 at 12:00; Stop 02/28/25 at 12:01; Status DC Metronidazole/ Sodium Chloride 100 ml @ 100 mls/hr Q8H6 IVPB Last administered on 03/01/25at 13:38; Start 02/28/25 at 22:00; Stop 03/10/25 at 21:59 Cefepime HCl 1 gm Q8H IVPB Last administered on 03/01/25at 10:18; Start 02/28/25 at 17:30; Stop 03/10/25 at 17:29 Doxycycline Hyclate 250 ml @ 125 mls/hr Q12H IV; Start 02/28/25 at 17:30; Stop 02/28/25 at 17:12; Status DC Albuterol 1 UDVIAL [id number] IH Last administered on 03/01/25at 10:52; Start 02/28/25 at 18:00; Stop 03/30/25 at 17:59 Sodium Chloride 4 ml STK-MED ONCE IH Last administered on 02/28/25at 23:43; Start 02/28/25 at 23:04; Stop 02/28/25 at 23:04; Status DC Potassium Bicarbonate 50 meq ONCE ONCE PO Last administered on 03/01/25at 05:37; Start 03/01/25 at 05:00; Stop 03/01/25 at 05:01; Status DC Magnesium Sulfate 50 ml @ 0 mls/hr PROTOCOL PRN IV Last administered on 03/01/25at 05:56; Start 03/01/25 at 05:00; Stop 03/31/25 at 04:59 Sodium Chloride 4 ml STK-MED ONCE IH Last administered on 03/01/25at 06:25; Start 03/01/25 at 06:09; Stop 03/01/25 at 06:10; Status DC Sodium Chloride 4 ml STK-MED ONCE IH Last administered on 03/01/25at 14:29; Start 03/01/25 at 13:58; Stop 03/01/25 at 13:58; Status DC TAYLOR GAUTHIER MD Mar 01, 2025 16:15
--- NOTE | 2025-03-01 22:32 | PN ---
[facility] PROGRESS NOTE Date Patient Seen: Mar 01, 2025 Time of Visit: 22:32 Supervising Physician: Dr. Luis Caraballo Primary Care Physician: Dr.Julio Laura Strange Outpatient Specialists: [ ] Inpatient Consults: Dr. Natalie Hand (hematology/oncology) PROBLEM LIST: 1. Acute hypoxemic respiratory failure 2. Pneumonia multilobular: Right lower lobe, left upper lobe 3. Elevated D-dimer 2118, CT chest ruled out PE 4. Thrombus bilateral GSV, patient is started on heparin drip anticoagulation, in case bronchoscopy for confirmation of TB 5. Renal cancer with bone Mets 6. Hypertension 7. Daily AFB sputums to rule out TB Recommendations: Antibiotic therapy cefepime 1 g IV q.8 hours and Flagyl 500 mg IV q.8 hours Dexamethasone 6 mg IV Q 24 hours Albuterol scheduled q.6 hours Pulmicort q.12 hours INTERVAL HISTORY: Maty Daniels is a 69-year-old gentleman, patient of Dr. Perry Strange , health history: Emphysema, hypertension, hypercholesterolemia, and history of renal carcinoma with bone metastasis presents to the emergency department on 02/27/2025 for treatment of pneumonia. Patient reports being diagnosed by his PCP with pneumonia recently started on antibiotics. Shortness of the breath has progressively worsened prompting the patient to seek further evaluation, treatment, and management at the emergency department. Chest x-ray 02/27/2025 results:A frontal projection of the chest was obtained. Extensive left lung pulmonary infiltrates are seen. Mild right lower lung pulmonary infiltrates are seen. The heart is borderline enlarged. Degenerative changes are seen. Postop changes are seen about the spine. No evidence of aortic calcification is seen. 03/01-patient assessed while resting in bed in high Aaron's position with family members present. Reviewed laboratory results for the day, vital signs, and microbiology results for AFB smear negative. Patient is hemodynamically stable. Patient is on antibiotic regimen of cefepime 1 g IV q.8 hours and Flagyl 500 mg IV q.8 hours. Patient recently diagnosed during the admission bilateral GSV thrombi is on heparin drip. Laboratory studies have been ordered for a.m.. REVIEW OF SYSTEMS: 12 point ROS reviewed with patient. Pertinent positives mentioned above. Otherwise negative. PHYSICAL EXAM: GENERAL: alert, weak, awake oriented x 3 HEENT: EOMI, Sclera non icteric, moist mucosa NECK: Supple, no JVD, trachea midline LUNGS: Clear breath sounds over diminished bilaterally. Rhonchi and inspiratory wheezes throughout. No stridor present. Patient require supplemental oxygen. HEART: Regular rate and rhythm. Normal S1 and S2, without murmurs ABD: Abdomen soft, nontender. Bowel sounds present EXT: No clubbing cyanosis or edema NEURO: Alert and oriented to person, follows commands Vital Signs (last 8hr) Date Time Temp Pulse Resp B/P (MAP) Pulse Ox O2 Delivery O2 Flow Rate FiO2 03/01/25 20:00 98.1 99 20 119/70 95 Room Air 03/01/25 19:16 80 18 N/A Room Air 21 03/01/25 19:16 80 18 03/01/25 16:22 98.1 87 16 116/64 98 LABS: Hematology Labs: Test 03/01/25 03:57 Range/Units White Blood Count 10.2 4.8-10.8 K/uL Red Blood Count 2.61 L 4.50-6.20 MIL/uL Hemoglobin 7.2 L 14.0-18.0 g/dL Hematocrit 24.3 L 42-54 % Mean Corpuscular Volume 93.1 79-99 fL Mean Corpuscular Hemoglobin 27.6 27.0-33.0 pg Mean Corpuscular Hemoglobin Concent 29.6 L 32.0-36.0 g/dL Red Cell Distribution Width 16.4 H 11.0-15.5 % Platelet Count 368 # 130-400 K/uL Mean Platelet Volume 8.1 7.5-10.5 fL Nucleated Red Blood Cells 0.0 0.0-0.19 % Chemistry Labs: Test 03/01/25 15:48 03/01/25 03:57 Range/Units Whole Blood Glucose 193 H 70-110 MG/DL Sodium Level 133 L 136-145 mmol/L Potassium Level 3.0 *L 3.5-5.1 mmol/L Chloride Level 100 L 101-111 mmol/L Carbon Dioxide Level 26 21-32 mmol/L Blood Urea Nitrogen 6 L 7-18 mg/dL Creatinine 0.5 0.5-1.3 mg/dL Glomerular Filtration Rate Calc 109 >90 mL/min Random Glucose 118 H 70-105 mg/dL Total Calcium 8.4 L 8.5-10.1 mg/dL Phosphorus Level 2.7 2.5-4.9 mg/dL Magnesium Level 1.80 1.80-2.40 mg/dL Coagulation Labs: Test 03/01/25 03:57 02/28/25 21:45 02/28/25 00:54 Range/Units Activated Partial Thromboplast Time 49.3 H 26.3-35.5 SEC Prothrombin Time 11.5 9.6-11.6 SEC Prothromb Time International Ratio 1.09 0.85-1.15 D-Dimer Quantitative (PE/DVT) 2118 *H 0-500 ng/mL DIAGNOSTICS / RADIOLOGY RESULTS: [ ] PLAN NEURO: Minimize central acting medications as possible. Maintain fall precautions, adequate lighting during the day PULMONARY: Supplemental 02 as needed. Maintain aspiration precautions at all times Maintain O2 saturation greater than 92% CARDIOVASCULAR: Follow hemodynamics. Vital signs per facility protocol GI & NUTRITION: Continue with nutritional support. Continue stool softeners and laxatives as needed. KIDNEYS & ELECTROLYTES: Strict monitoring of intake, output and overall fluid balance. Avoid nephrotoxic medications to the extent possible. Medications to be dosed according to renal function. Monitor electrolytes and replace as needed ENDOCRINE: Maintain blood glucose between 100-180 at all times. Hypoglycemia protocol in place INFECTIOUS DISEASE: Trend temperature, WBC and procalcitonin level Follow cultures, deescalate antibiotics as soon as possible. Panculture if new onset fever AFB sputum to be collected on Thursday, and Flagyl 500 mg IV q.8 hours Cefepime 1 g IV q.8 hours ONCOLOGY/HEMATOLOGY/COAGULATION: Monitor for s/s of bleeding Monitor hemoglobin, coagulation studies as needed SKIN: Pressure ulcer prevention per facility protocol Specialty mattress ORTHO/REHAB: Continue PT/OT Prophylaxis: Continue GI and DVT prophylaxis Patient is started on a heparin infusion, in case bronchoscopy is required Code Status: Full Resuscitation Disposition: TBD Other: Total patient care time exceeds 35 minutes excluding all procedures. JOCY FREY NP Mar 01, 2025 22:32
[2025-03-02] VITALS (15 sets, daily range): BP systolic 101–145; BP diastolic 41–78; PULSE 59–84; RESP 16–22; TEMP 97.5–98.9; O2SAT 94–99
[2025-03-02 04:26] LABS: BASOPHILS # (AUTO) 0.02 K/uL (0.00-0.20); BASOPHILS % (AUTO) 0.1 % (0.0-5.0); EOSINOPHILS # (AUTO) 0.01 K/uL (0.00-0.70); EOSINOPHILS % (AUTO) 0.1 % (0.0-8.0); HEMATOCRIT 24.9 % (42-54); IMMATURE GRANULOCYTE ABSOLUTE 0.24 K/uL (0-1); LYMPHOCYTES # (AUTO) 1.2 K/uL (1.0-4.8); LYMPHOCYTES % (AUTO) 7.1 % (21.0-51.0); MEAN CORPUSCULAR HEMOGLOBIN 27.8 pg (27.0-33.0); MEAN CORPUSCULAR HGB CONC 30.1 g/dL (32.0-36.0); MEAN CORPUSCULAR VOLUME 92.2 fL (79-99); MONOCYTES # (AUTO) 0.7 K/uL (0.1-1.0); MONOCYTES % (AUTO) 4.2 % (3.0-13.0); NEUTROPHILS # (AUTO) 15.1 K/uL (1.8-7.7); NEUTROPHILS % (AUTO) 87.1 % (40.0-77.0); PLATELET COUNT (AUTO) 450 K/uL (130-400); RED CELL DISTRIBUTION WIDTH 16.4 % (11.0-15.5); WHITE BLOOD COUNT (AUTO) 17.3 K/uL (4.8-10.8)
[2025-03-02 04:47] LABS: ALBUMIN 1.8 g/dL (3.5-5.0); BILIRUBIN,DIRECT 0.1 mg/dL (0.0-0.3); BILIRUBIN,TOTAL 0.3 mg/dL (0.2-1.0); CREATININE 0.6 mg/dL (0.5-1.3); MAGNESIUM 2.2 mg/dL (1.80-2.40); POTASSIUM 3.9 mmol/L (3.5-5.1); TOTAL PROTEIN, SERUM 6.6 g/dL (6.0-8.3)
--- NOTE | 2025-03-02 13:34 | PN ---
[facility] PROGRESS NOTE Date of Service: Mar 02, 2025 Time of Service: 13:32 SUBJECTIVE: HPI Patient is a 69-year-old male with a history of a kidney cancer, bone metastasis, hypercholesteremia, hypertension who presented to [facility] ED for evaluation of persistent cough. Per patient's was seen by his PCP and was diagnosed with a pneumonia. about 3 weeks ago , however the cough never went away. Cough is non productive and associated with shortness of breath. Labs done in the ED :Troponin WNL. D-dimer 8. BNP 105. ABG: PO2 89 on room air. O2 sats 96% on room air. CT PE protocol: No CT evidence of acute pulmonary embolus is seen. Small bilateral pleural effusions. Bilateral lower lung infiltrates. Chest x ray shows extensive left lung pulmonary infiltrates and mild right lower lobe pulmonary infiltrates. Venous doppler showed an occlusive thrombosis of the GSV bilaterally. Patient was started on Rocephin, Zithromax, NS1 L, and DuoNeb treatments. 02/28/2025: Lying in bed at the time of evaluation. Alert and oriented and in no obvious distress. Patient continues with nonproductive cough. Denies any fever, chills, chest pain, or shortness of breath. Vital signs: T 98.1, P 68, R 16, BP 101/51, oxygen saturation 96%. Patient had elevated D-dimers 2117however, CT of the chest showed no evidence of an acute PE. Continue with Ceftriaxone1 g daily, Azithromycin 500mg IV as ordered. Patient with a venous Doppler which shows nonocclusive thrombosis of the Great saphenous vein bilateral. Currently on heparin 74034 units IV. Hematology oncology consult placed for recommendations for anticoagulation in a patient with bone metastasis. Pending their recommendations. Consult also placed for pulmonology. 03/01/2025: Lying in bed at the time of evaluation. Alert and oriented and in no obvious distress. Patient states that he feels a lot better today. Continues with nonproductive cough. Denies any fever, chills, chest pain, shortness of breath. Vital sounds: T 99, P 87,R 22, BP 112/59, O2 95% on RA. Labs: WBC 10.2, Hb 7.2 down from 8.7, Chem: Sodium 133, K 3 . Will replace potassium as per protocol. Blood cultures showed no growth after 24 hrs. AFB cultures with smear ordered. Pending results. Patient is currently on airborne precautions. Continue with Metronidazole 500 mg Q 8h and Cefepime 1g q8h as ordered. Patient recently diagnosed during the admission bilateral GSV thrombi is on heparin drip. Hematology oncology consult was placed for recommendations on anticoagulation in a patient with renal carcinoma with bone metastasis. Ordered Eliquis 10 mg b.i.d. x7 days and 5mg thereafter on discharge. 03/02/2025:Lying in bed at the time of evaluation. Alert and oriented and in no obvious distress. Patient states that he feels a lot better today. Continues with nonproductive cough. Denies any fever, chills, chest pain, shortness of breath. Vital sounds: T 99, P 72,R 19, BP 115/42, O2 99% on RA. Labs: WBC trending up from 10.2 yesterday to 17.3 probably because the patient is on steroids. Will continue to monitor closely, Hb 7.5 , Chem: Sodium 135, K 3.9 BU N 8, Cr 0.6 . Blood cultures showed no growth after 24 hrs. AFB smear showed no acid fast bacilli. Pending culture results. Patient is currently on airborne precautions. Continue with Metronidazole 500 mg Q 8h and Cefepime 1g q8h as ordered. Patient recently diagnosed during the admission bilateral GSV thrombi is on heparin drip. REVIEW OF SYSTEMS CONSTITUTIONAL: No chills, no fever, no weakness, no diaphoresis, no malaise. HEAD/FACE: No signs of trauma. EENT: No eye pain, no blurred vision, no tearing, no double vision, no ear pain, no ear discharge, no nose pain, no nasal congestion, no throat pain, no throat swelling, no mouth pain. RESPIRATORY: Cough , SOB, no stridor, no wheezing. CARDIOVASCULAR: No chest pain, no edema, no palpitations, no syncope. GASTROINTESTINAL: No abdominal pain, no constipation, no diarrhea, no nausea, no vomiting. GENITOURINARY: No abnormal discharge, no dysuria, no frequent urination, no hematuria. No complaints of pain in the genitals. MUSCULOSKELETAL: No back pain, no gout, no joint pain, no joint swelling, no muscle pain, no muscle stiffness, no neck pain. INTEGUMENTARY: No change in color, no change in hair/nails, no dryness, no lesion, no lumps, no rash. NEUROLOGICAL: No anxiety, not depressed, no emotional problem, no headache, no numbness, no pre-existing deficit, no history of seizures, no tremors, no weakness. HEMATOLOGIC/LYMPHATIC: Not anemic, no history of blood clots, no apparent bleeding, no bruising, glands not swollen. PHYSICAL EXAM GENERAL APPEARANCE: The patient is awake, alert, and oriented, in no acute cardiopulmonary distress. NEUROLOGICAL: Cranial nerves II-XII grossly intact. Motor is 5/5 in bilateral upper and lower extremities proximal to distal. No sensory deficits. HEENT: Face is symmetric. Pupils are equal and reactive. Extraocular movements are intact. NECK: Supple. No JVD. No thyromegaly. No submental, submandibular, pre- /postauricular, occipital or supraclavicular lymphadenopathy. CHEST: Normal chest expansion. No Telemetry. LUNGS: Diminished breath sounds bilaterally, presence of rhonchi CARDIOVASCULAR: Regular. S1 and S2 normal. No appreciable rubs, murmurs or gallops. ABDOMEN: Soft, nontender, and nondistended. There is no rebound, voluntary guarding, or rigidity. : Deferred. No Zamarripa. EXTREMITIES: Non-edematous and not cyanotic. No clubbing. Good capillary refill. SKIN: No skin breakdown. Vital Signs (last 8hr) Date Time Temp Pulse Resp B/P (MAP) Pulse Ox O2 Delivery O2 Flow Rate FiO2 03/02/25 11:40 97.9 74 22 112/41 96 03/02/25 11:11 82 18 03/02/25 08:33 99 Room Air* 0 21 03/02/25 08:26 99.0 72 19 115/42 99 03/02/25 06:37 81 20 N/A Room Air 21 03/02/25 06:33 81 18 LABS: Laboratory: Test 03/02/25 11:23 03/02/25 10:50 03/02/25 04:12 03/01/25 03:57 Range/Units Activated Partial Thromboplast Time 49.7 H 26.3-35.5 SEC Whole Blood Glucose 199 H 70-110 MG/DL White Blood Count 17.3 H 4.8-10.8 K/uL Red Blood Count 2.70 L 4.50-6.20 MIL/uL Hemoglobin 7.5 L 14.0-18.0 g/dL Hematocrit 24.9 L 42-54 % Mean Corpuscular Volume 92.2 79-99 fL Mean Corpuscular Hemoglobin 27.8 27.0-33.0 pg Mean Corpuscular Hemoglobin Concent 30.1 L 32.0-36.0 g/dL Red Cell Distribution Width 16.4 H 11.0-15.5 % Platelet Count 450 H 130-400 K/uL Mean Platelet Volume 8.4 7.5-10.5 fL Immature Granulocyte % (Auto) 1.4 H 0-1 % Neutrophils (%) (Auto) 87.1 H 40.0-77.0 % Lymphocytes (%) (Auto) 7.1 L 21.0-51.0 % Monocytes (%) (Auto) 4.2 3.0-13.0 % Eosinophils (%) (Auto) 0.1 0.0-8.0 % Basophils (%) (Auto) 0.1 0.0-5.0 % Neutrophils # (Auto) 15.1 H 1.8-7.7 K/uL Lymphocytes # (Auto) 1.2 1.0-4.8 K/uL Monocytes # (Auto) 0.7 0.1-1.0 K/uL Eosinophils # (Auto) 0.01 0.00-0.70 K/uL Basophils # (Auto) 0.02 0.00-0.20 K/uL Absolute Immature Granulocyte (auto 0.24 0-1 K/uL Nucleated Red Blood Cells 0.0 0.0-0.19 % White Cell Morphology Comment See comments Sodium Level 135 L 136-145 mmol/L Potassium Level 3.9 3.5-5.1 mmol/L Chloride Level 100 L 101-111 mmol/L Carbon Dioxide Level 26 21-32 mmol/L Blood Urea Nitrogen 8 7-18 mg/dL Creatinine 0.6 0.5-1.3 mg/dL Glomerular Filtration Rate Calc 103 >90 mL/min Random Glucose 146 H 70-105 mg/dL Total Calcium 8.3 L 8.5-10.1 mg/dL Magnesium Level 2.20 1.80-2.40 mg/dL Total Bilirubin 0.3 0.2-1.0 mg/dL Direct Bilirubin 0.1 0.0-0.3 mg/dL Aspartate Amino Transf (AST/SGOT) 12 10-37 U/L Alanine Aminotransferase (ALT/SGPT) 11 L 12-78 U/L Alkaline Phosphatase 53 50-136 U/L Total Protein 6.6 6.0-8.3 g/dL Albumin 1.8 L 3.5-5.0 g/dL Phosphorus Level 2.7 2.5-4.9 mg/dL Test 02/28/25 21:45 Range/Units Prothrombin Time 11.5 9.6-11.6 SEC Prothromb Time International Ratio 1.09 0.85-1.15 Current Medications Medications (Trade) Dose Ordered Sig/Zoe Route PRN Reason Start Time Stop Time Status Last Admin Dose Admin Acetaminophen (TYLenol 325MG TAB) 650 mg Q6H PRN PO FEVER/MILD PAIN LEVEL 1-3 02/28/25 00:30 03/30/25 00:29 Acetaminophen (TYLenol 650MG SUPPOSITORY) 650 mg Q6H PRN RC FEVER / MILD PAIN 1-3 IF NPO 02/28/25 00:30 03/30/25 00:29 Albuterol (DUOneb) 1 UDVIAL [id number] 02/28/25 18:00 03/30/25 17:59 03/02/25 11:25 1 UDVIAL Albuterol Sulfate (Proventil 0.083% 2.5mg/3ml) 2.5 mg [id number] 02/28/25 01:00 03/01/25 10:47 DC 02/28/25 11:10 2.5 MG Azithromycin 250 ml @ 250 mls/hr Q24H IV 02/27/25 19:00 02/28/25 17:03 DC 02/27/25 20:18 250 MLS/HR Budesonide (Pulmicort 0.5 Mg/2ml) 0.5 mg BIDRESP 02/28/25 01:00 03/30/25 00:59 03/02/25 06:38 0.5 MG Cefepime HCl (MAXipime 1 GM vial) 1 gm Q8H IVPB 02/28/25 17:30 03/10/25 17:29 03/02/25 08:41 1 GM Ceftriaxone Sodium (ROCEphine 1G INJ) 1 gm DAILY08 IVPB 02/28/25 08:00 02/28/25 17:07 DC Dexamethasone Sodium Phosphate (dexaMETHasone 4MG/ML 1ML VIAL) 6 mg Q24H IV 02/28/25 05:00 03/30/25 04:59 03/02/25 05:27 6 MG Docusate Sodium (COLace 100MG CAP) 100 mg BID PRN PO c 02/28/25 00:30 03/30/25 00:29 Doxycycline Hyclate 250 ml @ 125 mls/hr Q12H IV 02/28/25 09:00 02/28/25 09:15 DC Doxycycline Hyclate 250 ml @ 125 mls/hr Q12H IV 02/28/25 17:30 02/28/25 17:12 DC Famotidine (Pepcid 20mg Tab) 20 mg BID PO 02/28/25 09:00 03/30/25 08:59 03/02/25 08:42 20 MG Guaifenesin/ Codeine Phosphate (RobiTUSSin AC 5 ML SYRUP) 15 ml Q6H PRN PO COUGH 02/28/25 05:00 03/30/25 04:59 03/01/25 04:48 15 ML Heparin Sodium/ Dextrose 250 ml @ 0 mls/hr PROTOCOL IV 02/28/25 07:00 03/30/25 06:59 03/02/25 05:53 9.63 MLS/HR Insulin Human Regular (humuLIN R 100 UNIT/ML 3ML) INSULIN SLIDING SCAL... ACHS SQ 02/28/25 07:30 03/30/25 07:29 03/02/25 12:26 2 UNIT Ipratropium Griffin (AtrovENT UD) 0.5 mg [id number] IH 02/28/25 01:00 03/01/25 10:47 DC 02/28/25 11:10 0.5 MG Labetalol HCl (TRANdate 20MG SYG) 10 mg Q2H PRN IV SBP GREATER THAN 160 02/28/25 00:30 03/30/25 00:29 Lactulose (Constulose 20gm/ 30ml Udcup) 20 gm Q6H PRN PO CONSTIPATION 02/28/25 00:30 03/30/25 00:29 Magnesium Sulfate 50 ml @ 0 mls/hr PROTOCOL PRN IV MAGNESIUM PROTOCOL 03/01/25 05:00 03/31/25 04:59 03/01/25 05:56 25 MLS/HR Metronidazole/ Sodium Chloride 100 ml @ 100 mls/hr Q8H6 IVPB 02/28/25 22:00 03/10/25 21:59 03/02/25 05:27 100 MLS/HR Miscellaneous Medication (Levothyroxine Sodium (Levothyroxine)) 1 cap DAILY PO 03/03/25 09:00 04/02/25 08:59 UNV Ondansetron HCl (zoFRAN 4MG INJ) 4 mg Q6H PRN IVP NAUSEA/VOMITING 02/28/25 00:30 03/30/25 00:29 Temazepam (restORIL 15 MG CAP) 15 mg HS PRN PO INSOMNIA/SLEEP 02/28/25 00:30 03/30/25 00:29 DIAGNOSTICS / RADIOLOGY: [ ] ASSESSMENT: Acute hypoxemic respiratory failure, POA Bilateral interstitial fibrosis and bronchiectasis, per CT on 02/27/2025 Small bilateral pleural effusions, POA, per CT Bilateral lower lung infiltrate, per CT Non occlusive thrombus of GSV as per Doppler on 02/27/25 Coronary arterial calcifications Elevated D-dimer, PE was ruled out by CT Elevated BNP at 105 Hx Renal cancer and bone Mets Hypertension Hypercholesterolemia PLAN: Bilateral lower lung infiltrate, per CT Acute hypoxemic respiratory failure, POA Small bilateral pleural effusions, POA, per CT *AFB smear: No acid fast bacilli seen. Culture results pending. *Continue with air borne precautions as ordered. *Continue with Metronidazole 500mg q8h and Cefepime 1g q8h IV as ordered. * Continue with Robitussin DM as needed cough. -Continue with Decadron 6 mg IV daily. *Supplemental oxygen as needed. *BiPAP as necessary for respiratory distress *PT to evaluate and treat. *Titrate Fio2 to keep Spo2> or = 90% *DuoNeb and CPT as needed *IS hourly while awake for pulmonary hygiene *Out of bed to chair as tolerated. *Maintain aspiration precautions at all times. Non occlusive thrombus of GSV as per Doppler on 01/27/25 *Eliquis 10mg bid x 7days and 5 mg thereafter recommended for home anticoagulation *Continue with Heparin 99342 units IV as ordered *Hematology/Oncology is on the case. *Elevated D-dimer 2117. PE ruled out by CT chest on 02/27/25 Hypertension *Follow hemodynamics. *Vital signs per facility protocol GI and DVT prophylaxis -Additional orders per hospital course. ATTESTATION BY PHYSICIAN I have seen and examined the patient. I reviewed the documentation, medical decision making, and treatment plan as noted by the resident provider above. I agree with the findings and plan of care. Ish Thomas MD OBI,DERECK Holt MD Mar 02, 2025 13:34
[2025-03-02] MEDS: acetaMINOPHEN 325 MG TAB PO PRN (16:11)
--- NOTE | 2025-03-02 23:25 | PN ---
[facility] PROGRESS NOTE Date Patient Seen: Mar 02, 2025 Time of Visit: 23:25 Supervising Physician: Dr. Baird Primary Care Physician: Dr.Julio Laura Strange Outpatient Specialists: [ ] Inpatient Consults: Dr. Natalie Hand (hematology/oncology) PROBLEM LIST: 1. Acute hypoxemic respiratory failure 2. Pneumonia multilobular: Right lower lobe, left upper lobe 3. Elevated D-dimer 2118, CT chest ruled out PE 4. Thrombus bilateral GSV, patient is started on heparin drip anticoagulation, in case bronchoscopy for confirmation of TB 5. Renal cancer with bone Mets 6. Hypertension 7. Daily AFB sputums to rule out TB - 03/01 AFB smear results negative Recommendations: Antibiotic therapy cefepime 1 g IV q.8 hours and Flagyl 500 mg IV q.8 hours Dexamethasone 6 mg IV Q 24 hours Albuterol scheduled q.6 hours Pulmicort q.12 hours INTERVAL HISTORY: Maty Daniels is a 69-year-old gentleman, patient of Dr. Perry Strange , health history: Emphysema, hypertension, hypercholesterolemia, and history of renal carcinoma with bone metastasis presents to the emergency department on 02/27/2025 for treatment of pneumonia. Patient reports being diagnosed by his PCP with pneumonia recently started on antibiotics. Shortness of the breath has progressively worsened prompting the patient to seek further evaluation, treatment, and management at the emergency department. Chest x-ray 02/27/2025 results:A frontal projection of the chest was obtained. Extensive left lung pulmonary infiltrates are seen. Mild right lower lung pulmonary infiltrates are seen. The heart is borderline enlarged. Degenerative changes are seen. Postop changes are seen about the spine. No evidence of aortic calcification is seen. 03/01-patient assessed while resting in bed in high Aaron's position with family members present. Reviewed laboratory results for the day, vital signs, and microbiology results for AFB smear negative. Patient is hemodynamically stable. Patient is on antibiotic regimen of cefepime 1 g IV q.8 hours and Flagyl 500 mg IV q.8 hours. Patient recently diagnosed during the admission bilateral GSV thrombi is on heparin drip. Laboratory studies have been ordered for a.m.. 03/02-patient is resting lying in bed in a high Aaron's position with family members present, reviewed laboratory results, vital signs, medications with both. Patient being titrated off oxygen, hemodynamically stable. First AFB smear was negative. We will continue with antibiotic therapy consisting of cefepime 1 g IV q.8 hours and Flagyl 500 mg IV q.8 hours. REVIEW OF SYSTEMS: 12 point ROS reviewed with patient. Pertinent positives mentioned above. Otherwise negative. PHYSICAL EXAM: GENERAL: alert, weak, awake oriented x 3 HEENT: EOMI, Sclera non icteric, moist mucosa NECK: Supple, no JVD, trachea midline LUNGS: Clear breath sounds over diminished bilaterally. Rhonchi and inspiratory wheezes throughout. No stridor present. Patient require supplemental oxygen. HEART: Regular rate and rhythm. Normal S1 and S2, without murmurs ABD: Abdomen soft, nontender. Bowel sounds present EXT: No clubbing cyanosis or edema NEURO: Alert and oriented to person, follows commands Vital Signs (last 8hr) Date Time Temp Pulse Resp B/P (MAP) Pulse Ox O2 Delivery O2 Flow Rate FiO2 03/02/25 20:00 97.5 60 16 101/53 94 Room Air 03/02/25 19:06 69 18 03/02/25 19:06 69 18 N/A Room Air 21 03/02/25 16:00 99.0 80 18 145/78 98 LABS: Hematology Labs: Test 03/02/25 04:12 Range/Units White Blood Count 17.3 H 4.8-10.8 K/uL Red Blood Count 2.70 L 4.50-6.20 MIL/uL Hemoglobin 7.5 L 14.0-18.0 g/dL Hematocrit 24.9 L 42-54 % Mean Corpuscular Volume 92.2 79-99 fL Mean Corpuscular Hemoglobin 27.8 27.0-33.0 pg Mean Corpuscular Hemoglobin Concent 30.1 L 32.0-36.0 g/dL Red Cell Distribution Width 16.4 H 11.0-15.5 % Platelet Count 450 H 130-400 K/uL Mean Platelet Volume 8.4 7.5-10.5 fL Immature Granulocyte % (Auto) 1.4 H 0-1 % Neutrophils (%) (Auto) 87.1 H 40.0-77.0 % Lymphocytes (%) (Auto) 7.1 L 21.0-51.0 % Monocytes (%) (Auto) 4.2 3.0-13.0 % Eosinophils (%) (Auto) 0.1 0.0-8.0 % Basophils (%) (Auto) 0.1 0.0-5.0 % Neutrophils # (Auto) 15.1 H 1.8-7.7 K/uL Lymphocytes # (Auto) 1.2 1.0-4.8 K/uL Monocytes # (Auto) 0.7 0.1-1.0 K/uL Eosinophils # (Auto) 0.01 0.00-0.70 K/uL Basophils # (Auto) 0.02 0.00-0.20 K/uL Absolute Immature Granulocyte (auto 0.24 0-1 K/uL Nucleated Red Blood Cells 0.0 0.0-0.19 % White Cell Morphology Comment See comments Chemistry Labs: Test 03/02/25 19:42 03/02/25 04:12 03/01/25 03:57 Range/Units Whole Blood Glucose 159 H 70-110 MG/DL Sodium Level 135 L 136-145 mmol/L Potassium Level 3.9 3.5-5.1 mmol/L Chloride Level 100 L 101-111 mmol/L Carbon Dioxide Level 26 21-32 mmol/L Blood Urea Nitrogen 8 7-18 mg/dL Creatinine 0.6 0.5-1.3 mg/dL Glomerular Filtration Rate Calc 103 >90 mL/min Random Glucose 146 H 70-105 mg/dL Total Calcium 8.3 L 8.5-10.1 mg/dL Magnesium Level 2.20 1.80-2.40 mg/dL Total Bilirubin 0.3 0.2-1.0 mg/dL Direct Bilirubin 0.1 0.0-0.3 mg/dL Aspartate Amino Transf (AST/SGOT) 12 10-37 U/L Alanine Aminotransferase (ALT/SGPT) 11 L 12-78 U/L Alkaline Phosphatase 53 50-136 U/L Total Protein 6.6 6.0-8.3 g/dL Albumin 1.8 L 3.5-5.0 g/dL Phosphorus Level 2.7 2.5-4.9 mg/dL Coagulation Labs: Test 03/02/25 18:00 Range/Units Activated Partial Thromboplast Time 54.5 H 26.3-35.5 SEC DIAGNOSTICS / RADIOLOGY RESULTS: [ ] PLAN NEURO: Minimize central acting medications as possible. Maintain fall precautions, adequate lighting during the day PULMONARY: Supplemental 02 as needed. Maintain aspiration precautions at all times Maintain O2 saturation greater than 92% CARDIOVASCULAR: Follow hemodynamics. Vital signs per facility protocol GI & NUTRITION: Continue with nutritional support. Continue stool softeners and laxatives as needed. KIDNEYS & ELECTROLYTES: Strict monitoring of intake, output and overall fluid balance. Avoid nephrotoxic medications to the extent possible. Medications to be dosed according to renal function. Monitor electrolytes and replace as needed ENDOCRINE: Maintain blood glucose between 100-180 at all times. Hypoglycemia protocol in place INFECTIOUS DISEASE: Trend temperature, WBC and procalcitonin level Follow cultures, deescalate antibiotics as soon as possible. Panculture if new onset fever AFB sputum to be collected on Thursday, and Flagyl 500 mg IV q.8 hours Cefepime 1 g IV q.8 hours ONCOLOGY/HEMATOLOGY/COAGULATION: Monitor for s/s of bleeding Monitor hemoglobin, coagulation studies as needed SKIN: Pressure ulcer prevention per facility protocol Specialty mattress ORTHO/REHAB: Continue PT/OT Prophylaxis: Continue GI and DVT prophylaxis Patient is started on a heparin infusion, in case bronchoscopy is required Code Status: Full Resuscitation Disposition: TBD Other: Total patient care time exceeds 35 minutes excluding all procedures. JOCY FREY NP Mar 02, 2025 23:25
[2025-03-02] MEDS: SODIUM CHLORIDE 3% FOR INHALATION 4 ML/AMP VIAL.NEB IH ONE (23:40)
[2025-03-03] VITALS (7 sets, daily range): BP systolic 104–126; BP diastolic 54–70; PULSE 77–84; RESP 16–20; TEMP 97.5–98.2; O2SAT 96–97
[2025-03-03 06:43] LABS: BASOPHILS # (AUTO) 0.01 K/uL (0.00-0.20); BASOPHILS % (AUTO) 0.1 % (0.0-5.0); EOSINOPHILS # (AUTO) 0.02 K/uL (0.00-0.70); EOSINOPHILS % (AUTO) 0.2 % (0.0-8.0); HEMATOCRIT 24.8 % (42-54); IMMATURE GRANULOCYTE ABSOLUTE 0.24 K/uL (0-1); LYMPHOCYTES # (AUTO) 1.3 K/uL (1.0-4.8); LYMPHOCYTES % (AUTO) 11.3 % (21.0-51.0); MEAN CORPUSCULAR HEMOGLOBIN 27.4 pg (27.0-33.0); MEAN CORPUSCULAR HGB CONC 29.4 g/dL (32.0-36.0); MEAN CORPUSCULAR VOLUME 93.2 fL (79-99); MONOCYTES # (AUTO) 0.6 K/uL (0.1-1.0); MONOCYTES % (AUTO) 4.8 % (3.0-13.0); NEUTROPHILS # (AUTO) 9.7 K/uL (1.8-7.7); NEUTROPHILS % (AUTO) 81.6 % (40.0-77.0); PLATELET COUNT (AUTO) 418 K/uL (130-400); RED BLOOD CELL COUNT(AUTO) 2.66 MIL/uL (4.50-6.20); RED CELL DISTRIBUTION WIDTH 16.4 % (11.0-15.5); WHITE BLOOD COUNT (AUTO) 11.9 K/uL (4.8-10.8)
[2025-03-03 06:50] LABS: CREATININE 0.5 mg/dL (0.5-1.3); POTASSIUM 3.6 mmol/L (3.5-5.1)
[2025-03-03] MEDS: levoTHYROxine 100 MCG TABLET PO SCH (07:34)
[2025-03-03] MEDS: levoTHYROxine 75 MCG TABLET PO SCH (07:34)
--- NOTE | 2025-03-03 09:31 | NUR ---
Notified Dr Goff of K 3.6, no new orders received.
--- NOTE | 2025-03-03 12:02 | PN ---
Patient is a 69-year-old male with a past medical history of a renal carcinoma with bone metastasis, hypercholesteremia, and hypertension who presented to [facility] ED for evaluation of persistent cough. Patient was being followed by his PCP, who diagnosed him with pneumonia three weeks ago. Patient reports having a persistent cough for the last 3 weeks. Labs in the emergency department showed a troponin within normal limits, a D-dimer of 2118, BNP of 105. ABG was done, and showed a PO2 80.9 on room air. Oxygen saturation was 96% on room air. CT scan of the hcest showed small bilateral pleural effusions. Bilateral lower lung pulmonary acute process in the left more than right, there are bilateral interstitial fibrosis and bronchiectasis. No CT evidence of pleural effusion or pericardial effusion is seen. The heart is enlarged. Coronary arterial calcifications are seen. No evidence of adrenal mass is seen. Degenerative changes of the spine. The impression of the CT chest reports no CT evidence of acute pulmonary embolus is seen, small bilateral pleural effusions, bilateral lower lung infiltrates. A venous doppler showed evidence of a nonocclusive thrombosis in the great saphenous vein bilaterally. Patient was started on a heparin drip. Heme/onc was consulted for anticoagulation recommendation in patient with bone metastasis and for history of metastatic renal cancer. ED provider request patient be admitted with the diagnosis of pneumonia involving left lung, cavitary pneumonia, history of possible lung cancer. PHYSICAL EXAM VITALS: Vital Signs Date Time Temp Pulse Resp B/P (MAP) Pulse Ox O2 Delivery O2 Flow Rate FiO2 02/28/25 12:26 98.1 65 16 138/60 98 Room Air* 0 21 GENERAL: ALERT, ORIENTED, APPEARS-NO ACUTE DISTRESS EYES: SCLERAE ANICTERIC, PUPILS EQUAL/REACTIVE; No EXTRAOCULAR MUSCLES INTCT ENT/NECK: ORAL MUCOSA W/O LESIONS, OROPHARYNX IS CLEAR, NECK SUPPLE W/O MASSES RESPIRATORY: LUNGS CLEAR-AUSC/PERCUS CARDIOVASCULAR: REGULAR RATE, REGULAR RHYTHM GASTROINTESTINAL: ABDOMEN IS SOFT; No TENDER, No DISTENDED, No HEPATOSPLENOMEGALY; BOWEL SOUNDS PRESENT; No PALPABLE MASSES HEMATOLOGY/LYMPHATIC: No CERVICAL ADENOPATHY, No SUPRACLAVICULR ADENOPATHY, No AXILLARY ADENOPATHY, No INGUINAL ADENOPATHY MUSCULOSKELETAL: No CYANOSIS-EXTREMETIES, No CLUBBING, No EDEMA SKIN/BREASTS: No MASSES, No RASH, No HIVES NEUROLOGICAL: GROSSLY INTACT PSYCHOLOGICAL: MINI MENTAL ASSMT INTACT 1. Renal cell CA 2. CT scan showing cavitary lesion which presented before consistent with metastatic disease 3. Hypertension 4. Hyperlipidemia 5. Pneumonia 6. Failure to thrive Plan 1.Continue antibiotic as per infectious diseases specialist 2. We will hold chemotherapy treatment while the patient in the hospital 3. Patient will need physical therapy treatment 4. We will know about the cavitary lesion from previous PET CT scan which was consistent with metastatic disease. 5. This patient to be on nebulized treatment with albuterol and Atrovent Vitals/Labs Vital Signs Date Time Temp Pulse Resp B/P (MAP) Pulse Ox O2 Delivery O2 Flow Rate FiO2 03/03/25 11:19 77 18 03/03/25 11:19 N/A Room Air 21 03/03/25 08:00 0 03/03/25 08:00 98.2 123/68 96 Laboratory Tests 03/03/25 06:32 Medications Current Medications Ceftriaxone Sodium 1 gm ONCE ONCE IVPB Last administered on 02/27/25at 20:05; Start 02/27/25 at 19:00; Stop 02/27/25 at 19:01; Status DC Azithromycin 250 ml @ 250 mls/hr Q24H IVPB Last administered on 02/27/25at 20:18; Start 02/27/25 at 19:00; Stop 02/28/25 at 17:03; Status DC Albuterol 1 UDVIAL ONCE ONCE IH Last administered on 02/27/25at 19:39; Start 02/27/25 at 19:30; Stop 02/27/25 at 19:31; Status DC Sodium Chloride 1,000 ml @ 125 mls/hr ONCE ONCE IV Last administered on 02/27/25at 20:19; Start 02/27/25 at 19:30; Stop 02/28/25 at 03:29; Status DC Iohexol 75 ml STK-MED ONCE IV; Start 02/27/25 at 23:57; Stop 02/27/25 at 23:57; Status DC Albuterol Sulfate 2.5 mg [id number] IH Last administered on 02/28/25at 11:10; Start 02/28/25 at 01:00; Stop 03/01/25 at 10:47; Status DC Ipratropium [place] 0.5 mg [id number] IH Last administered on 02/28/25at 11:10; Start 02/28/25 at 01:00; Stop 03/01/25 at 10:47; Status DC Famotidine 20 mg BID PO Last administered on 03/03/25at 08:41; Start 02/28/25 at 09:00; Stop 03/30/25 at 08:59 Acetaminophen 650 mg Q6H PRN PO Last administered on 03/02/25at 16:11; Start 02/28/25 at 00:30; Stop 03/30/25 at 00:29 Acetaminophen 650 mg Q6H PRN RC; Start 02/28/25 at 00:30; Stop 03/30/25 at 00:29 Lactulose 20 gm Q6H PRN PO; Start 02/28/25 at 00:30; Stop 03/30/25 at 00:29 Docusate Sodium 100 mg BID PRN PO; Start 02/28/25 at 00:30; Stop 03/30/25 at 00:29 Temazepam 15 mg HS PRN PO; Start 02/28/25 at 00:30; Stop 03/30/25 at 00:29 Ondansetron HCl 4 mg Q6H PRN IVP; Start 02/28/25 at 00:30; Stop 03/30/25 at 00:29 Labetalol HCl 10 mg Q2H PRN IV; Start 02/28/25 at 00:30; Stop 03/30/25 at 00:29 Insulin Human Regular INSULIN SLIDING SCAL... ACHS SQ Last administered on 03/02/25at 12:26; Start 02/28/25 at 07:30; Stop 03/30/25 at 07:29 Doxycycline Hyclate 250 ml @ 125 mls/hr Q12H IV; Start 02/28/25 at 09:00; Stop 02/28/25 at 09:15; Status DC Ceftriaxone Sodium 1 gm DAILY08 IVPB; Start 02/28/25 at 08:00; Stop 02/28/25 at 17:07; Status DC Budesonide 0.5 mg BIDRESP IH Last administered on 03/03/25at 07:28; Start 02/28/25 at 01:00; Stop 03/30/25 at 00:59 Guaifenesin/ Codeine Phosphate 15 ml Q6H PRN PO Last administered on 03/01/25at 04:48; Start 02/28/25 at 05:00; Stop 03/30/25 at 04:59 Dexamethasone Sodium Phosphate 6 mg Q24H IV Last administered on 03/03/25at 05:24; Start 02/28/25 at 05:00; Stop 03/30/25 at 04:59 Heparin Sodium/ Dextrose 250 ml @ 0 mls/hr PROTOCOL IV Last administered on 03/02/25at 18:42; Start 02/28/25 at 07:00; Stop 03/30/25 at 06:59 Heparin Sodium (Porcine) 4,000 unit ONCE ONCE IV Last administered on 02/28/25at 11:58; Start 02/28/25 at 12:00; Stop 02/28/25 at 12:01; Status DC Metronidazole/ Sodium Chloride 100 ml @ 100 mls/hr Q8H6 IVPB Last administered on 03/03/25at 05:27; Start 02/28/25 at 22:00; Stop 03/10/25 at 21:59 Cefepime HCl 1 gm Q8H IVPB Last administered on 03/03/25at 08:41; Start 02/28/25 at 17:30; Stop 03/10/25 at 17:29 Doxycycline Hyclate 250 ml @ 125 mls/hr Q12H IV; Start 02/28/25 at 17:30; Stop 02/28/25 at 17:12; Status DC Albuterol 1 UDVIAL [id number] IH Last administered on 03/03/25at 11:16; Start 02/28/25 at 18:00; Stop 03/30/25 at 17:59 Sodium Chloride 4 ml STK-MED ONCE IH Last administered on 02/28/25at 23:43; Start 02/28/25 at 23:04; Stop 02/28/25 at 23:04; Status DC Potassium Bicarbonate 50 meq ONCE ONCE PO Last administered on 03/01/25at 05:37; Start 03/01/25 at 05:00; Stop 03/01/25 at 05:01; Status DC Magnesium Sulfate 50 ml @ 0 mls/hr PROTOCOL PRN IV Last administered on 03/01/25at 05:56; Start 03/01/25 at 05:00; Stop 03/31/25 at 04:59 Sodium Chloride 4 ml STK-MED ONCE IH Last administered on 03/01/25at 06:25; Start 03/01/25 at 06:09; Stop 03/01/25 at 06:10; Status DC Sodium Chloride 4 ml STK-MED ONCE IH Last administered on 03/01/25at 14:29; Start 03/01/25 at 13:58; Stop 03/01/25 at 13:58; Status DC Levothyroxine Sodium 100 mcg SYN PO Last administered on 03/03/25at 07:34; Start 03/03/25 at 06:30; Stop 04/02/25 at 06:29 Levothyroxine Sodium 75 mcg SYN PO Last administered on 03/03/25at 07:34; Start 03/03/25 at 06:30; Stop 04/02/25 at 06:29 Sodium Chloride 4 ml STK-MED ONCE IH Last administered on 03/02/25at 23:40; Start 03/02/25 at 22:57; Stop 03/02/25 at 22:58; Status DC TAYLOR GAUTHIER MD Mar 03, 2025 12:02
[2025-03-03] MEDS ORDERED: APIX5TAB PO (13:54)
--- NOTE | 2025-03-03 14:00 | DS ---
Discharge Summary Hospital Course Summary: Patient Information: *Name:Frances Flores *Date of :51 *Admission Date:02/27/25 *Discharge Date: 03/03/2025 Attending Physician: Dr Ish Thomas Admitting Diagnosis:Acute Hypoxemic Resp Failure, Small Bilateral pleural effusion, Bilateral lower lobe infiltrates, Bilateral interstitial fibrosis and bronchiectasis. Course in Hospital: Patient is a 69-year-old male with a history of a kidney cancer, bone metastasis, hypercholesteremia, hypertension who presented to [facility] ED for evaluation of persistent cough. Per patient's was seen by his PCP and was diagnosed with a pneumonia. about 3 weeks ago , however the cough never went away. Cough is non productive and associated with shortness of breath. CT PE protocol: No CT evidence of acute pulmonary embolus is seen. Small bilateral pleural effusions. Bilateral lower lung infiltrates. Chest x ray shows extensive left lung pulmonary infiltrates and mild right lower lobe pulmonary infiltrates. Venous Doppler showed an occlusive thrombosis of the GSV bilaterally. Hem atology/oncology consult was placed to help with anticoagulation in a patient with renal carcinoma and bone metastasis. Eliquis 10mg bid for 7days and 5 mg bid thereafter was recommended for home treatment, however patient was immediately started on Heparin 25,000units. Patient was also started on Metronidazole 500mg q8h and Cefepime 1g q8h, Normal saline 1 L, and DuoNeb treatments. Sputum smear was negative for Acid Fast Bacilli and cultures were sent. Over the course of his hospitalization, his symptoms improved significantly. Paytient denied any chest pain, shortness of breath or cough. Patient was also able to ambulate around the unit with of physical therapy. Procedures performed: CBC, CMP, CXR, CT chest, Venous Doppler Medications on Discharge: Levofloxacin 750mg daily for 7 days Discharge Instructions: *Follow up with your primary care physician in 2 - 3 days after discharge. *Continue all medications as prescribed. Do not discontinue or change dosages without consulting your PCP. *Gradually resume normal activities as tolerated. *Continue a balanced diet . Reduce salt intake to help manage BP. *Seek immediate medical attention if you experience chest pain, SOB or severe h eadache. *Smoking cessation is strongly advised. Resources for quitting smoking are available upon request. Discharged to: Home Condition on Discharge: Stable Shoe Cleaner(s): Pulmonology Hematology/Oncology Procedure(s): Chest x ray, CT Chest, Venous Doppler Assessment/Plan: ASSESSMENT: Acute hypoxemic respiratory failure, POA resolved Bilateral interstitial fibrosis and bronchiectasis, per CT on 02/27/2025 Small bilateral pleural effusions, POA, per CT Bilateral lower lung infiltrate, per CT Non occlusive thrombus of GSV as per Doppler on 02/27/25 Coronary arterial calcifications Elevated D-dimer, PE was ruled out by CT Elevated BNP at 105 Hx Renal cancer and bone Mets Hypertension Hypercholesterolemia PLAN: *Plan is to discharge patient on Levofloxacin 500mg paco for 7 days for the pneumonia. *Eliquis 10mg bid for 7days and 5mg bid thereafter for the DVT. *Instructions to follow up with PCP for further evaluation and management. Discharge Instructions: Discharge Instructions: *Follow up with your primary care physician in 2 - 3 days after discharge. *Continue all medications as prescribed. Do not discontinue or change dosages without consulting your PCP. *Gradually resume normal activities as tolerated. *Continue a balanced diet . Reduce salt intake to help manage BP. *Seek immediate medical attention if you experience chest pain, SOB or severe headache. *Smoking cessation is strongly advised. Resources for quitting smoking are available upon request. Home Medications: Reported Medications Amoxicillin/Potassium Clav (Amox Tr-K Clv 875-125 mg Tab) 875 Mg-125 Mg Tablet, 1 TAB PO BID for 7 Days, #20 TAB 0 Refills 03/01/25 Levothyroxine Sodium (Levothyroxine) 175 Mcg Capsule, 1 CAP PO DAILY for 30 Days, #30 CAP 0 Refills 03/01/25 Time spent arranging discharge: 31-60 minutes ATTESTATION BY PHYSICIAN I have seen and examined the patient. I reviewed the documentation, medical decision making, and treatment plan as noted by the resident provider above. I agree with the findings and plan of care. Ish Thomas MD OBI,DERECK Holt MD Mar 03, 2025 14:00
[2025-03-03] MEDS ORDERED: LEVO750T90 PO (14:08)
--- NOTE | 2025-03-03 16:34 | NUR ---
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 A follow-up appointment with Dr Dey was made for March 07 at 3 pm. PIV is removed and all belongings are packed by the patient's wind turbine design engineer. The pt is taken to lobby by wheelchair where he departed in a private vehicle.
--- NOTE | 2025-03-04 12:06 | PN ---
[facility] PROGRESS NOTE Back Dated Entry 03/03/25 Date Patient Seen: Mar 04, 2025 Time of Visit: 12:01 Supervising Physician: Dr. Declan Baird Primary Care Physician: Dr.Julio Laura Strange Outpatient Specialists: [ ] Inpatient Consults: Dr. Natalie Hand (hematology/oncology) PROBLEM LIST: 1. Acute hypoxemic respiratory failure , resolved 2. Pneumonia multilobular: Right lower lobe, left upper lobe, resolved 3. Elevated D-dimer 2118, CT chest ruled out PE 4. Thrombus bilateral GSV, patient is started on heparin drip anticoagulation, in case bronchoscopy for confirmation of TB 5. Renal cancer with bone Mets 6. Hypertension 7. Daily AFB sputums to rule out TB - 03/01 AFB smear results negative -03/02 AFB smear results negative Recommendations: Antibiotic therapy cefepime 1 g IV q.8 hours and Flagyl 500 mg IV q.8 hours Dexamethasone 6 mg IV Q 24 hours Albuterol scheduled q.6 hours Pulmicort q.12 hours INTERVAL HISTORY: Maty Daneils is a 69-year-old gentleman, patient of Dr. Perry Strange , health history: Emphysema, hypertension, hypercholesterolemia, and history of renal carcinoma with bone metastasis presents to the emergency department on 02/27/2025 for treatment of pneumonia. Patient reports being diagnosed by his PCP with pneumonia recently started on antibiotics. Shortness of the breath has progressively worsened prompting the patient to seek further evaluation, treat ment, and management at the emergency department. Chest x-ray 02/27/2025 results:A frontal projection of the chest was obtained. Extensive left lung pulmonary infiltrates are seen. Mild right lower lung pulmonary infiltrates are seen. The heart is borderline enlarged. Degenerative changes are seen. Postop changes are seen about the spine. No evidence of aortic calcification is seen. 03/01-patient assessed while resting in bed in high Aaron's position with family members present. Reviewed laboratory results for the day, vital signs, and microbiology results for AFB smear negative. Patient is hemodynamically stable. Patient is on antibiotic regimen of cefepime 1 g IV q.8 hours and Flagyl 500 mg IV q.8 hours. Patient recently diagnosed during the admission bilateral GSV thrombi is on heparin drip. Laboratory studies have been ordered for a.m.. 03/02-patient is resting lying in bed in a high Aaron's position with family members present, reviewed laboratory results, vital signs, medications with both. Patient being titrated off oxygen, hemodynamically stable. First AFB smear was negative. We will continue with antibiotic therapy consisting of cefepime 1 g IV q.8 hours and Flagyl 500 mg IV q.8 hours. 03/03-patient is resting in bed, family members present, friendly and conversant, on room air, reporting feeling much better today. Patient denies fever, chills, cough, chest congestion, diarrhea, and constipation currently. Reviewed with patient laboratory results, including AFB smear results for today, negative, vital signs were discussed, and the treatment plan. Patient has been tested and does not require home O2. Awaiting final ABF smear result, and dispo was per primary team REVIEW OF SYSTEMS: 12 point ROS reviewed with patient. Pertinent positives mentioned above. Otherwise negative. PHYSICAL EXAM: GENERAL: alert, weak, awake oriented x 3 HEENT: EOMI, Sclera non icteric, moist mucosa NECK: Supple, no JVD, trachea midline LUNGS: Clear breath sounds over diminished bilaterally. Rhonchi and inspiratory wheezes throughout. No stridor present. Patient require supplemental oxygen. HEART: Regular rate and rhythm. Normal S1 and S2, without murmurs ABD: Abdomen soft, nontender. Bowel sounds present EXT: No clubbing cyanosis or edema NEURO: Alert and oriented to person, follows commands LABS: Hematology Labs: Test 03/03/25 06:32 Range/Units White Blood Count 11.9 H 4.8-10.8 K/uL Red Blood Count 2.66 L 4.50-6.20 MIL/uL Hemoglobin 7.3 L 14.0-18.0 g/dL Hematocrit 24.8 L 42-54 % Mean Corpuscular Volume 93.2 79-99 fL Mean Corpuscular Hemoglobin 27.4 27.0-33.0 pg Mean Corpuscular Hemoglobin Concent 29.4 L 32.0-36.0 g/dL Red Cell Distribution Width 16.4 H 11.0-15.5 % Platelet Count 418 H 130-400 K/uL Mean Platelet Volume 8.5 7.5-10.5 fL Immature Granulocyte % (Auto) 2.0 H 0-1 % Neutrophils (%) (Auto) 81.6 H 40.0-77.0 % Lymphocytes (%) (Auto) 11.3 L 21.0-51.0 % Monocytes (%) (Auto) 4.8 3.0-13.0 % Eosinophils (%) (Auto) 0.2 0.0-8.0 % Basophils (%) (Auto) 0.1 0.0-5.0 % Neutrophils # (Auto) 9.7 H 1.8-7.7 K/uL Lymphocytes # (Auto) 1.3 1.0-4.8 K/uL Monocytes # (Auto) 0.6 0.1-1.0 K/uL Eosinophils # (Auto) 0.02 0.00-0.70 K/uL Basophils # (Auto) 0.01 0.00-0.20 K/uL Absolute Immature Granulocyte (auto 0.24 0-1 K/uL Nucleated Red Blood Cells 0.0 0.0-0.19 % Chemistry Labs: Test 03/03/25 15:09 03/03/25 06:32 Range/Units Whole Blood Glucose 153 H 70-110 MG/DL Sodium Level 131 L 136-145 mmol/L Potassium Level 3.6 3.5-5.1 mmol/L Chloride Level 101 101-111 mmol/L Carbon Dioxide Level 26 21-32 mmol/L Blood Urea Nitrogen 8 7-18 mg/dL Creatinine 0.5 0.5-1.3 mg/dL Glomerular Filtration Rate Calc 109 >90 mL/min Random Glucose 124 H 70-105 mg/dL Total Calcium 8.3 L 8.5-10.1 mg/dL Coagulation Labs: Test 03/03/25 00:56 Range/Units Activated Partial Thromboplast Time 54.4 H 26.3-35.5 SEC DIAGNOSTICS / RADIOLOGY RESULTS: [ ] PLAN NEURO: Minimize central acting medications as possible. Maintain fall precautions, adequate lighting during the day PULMONARY: Supplemental 02 as needed. Maintain aspiration precautions at all times Maintain O2 saturation greater than 92% CARDIOVASCULAR: Follow hemodynamics. Vital signs per facility protocol GI & NUTRITION: Continue with nutritional support. Continue stool softeners and laxatives as needed. KIDNEYS & ELECTROLYTES: Strict monitoring of intake, output and overall fluid balance. Avoid nephrotoxic medications to the extent possible. Medications to be dosed according to renal function. Monitor electrolytes and replace as needed ENDOCRINE: Maintain blood glucose between 100-180 at all times. Hypoglycemia protocol in place INFECTIOUS DISEASE: Trend temperature, WBC and procalcitonin level Follow cultures, deescalate antibiotics as soon as possible. Panculture if new onset fever AFB sputum to be collected on Thursday, and Flagyl 500 mg IV q.8 hours Cefepime 1 g IV q.8 hours ONCOLOGY/HEMATOLOGY/COAGULATION: Monitor for s/s of bleeding Monitor hemoglobin, coagulation studies as needed SKIN: Pressure ulcer prevention per facility protocol Specialty mattress ORTHO/REHAB: Continue PT/OT Prophylaxis: Continue GI and DVT prophylaxis Patient is started on a heparin infusion, in case bronchoscopy is required Code Status: Full Resuscitation Disposition: TBD Other: Total patient care time exceeds 35 minutes excluding all procedures. JOCY FREY NP Mar 04, 2025 12:06
--- NOTE | 2025-03-07 14:34 | NUR ---
Transitional Phone Call Attempted to call twice, unable to leave message; no answer.
== END 2025-03-03 16:30 | disposition home or self-care (01) | DRG 193 ==
LOC: EDH 16:46 → EDHIP 19:58 → 4DH 02-28 17:39 → 4AH 02-28 20:24
PROVIDERS: ADMIT Internal Medicine; ATTEND Internal Medicine
DX: J18.8 Other pneumonia, unspecified organism (principal); J96.01 Acute respiratory failure with hypoxia; J47.0 Bronchiectasis with acute lower respiratory infection; J90 Pleural effusion, not elsewhere classified; Z20.822 Contact with and (suspected) exposure to COVID-19; I51.7 Cardiomegaly; E78.00 Pure hypercholesterolemia, unspecified; Z86.718 Personal history of other venous thrombosis and embolism; Z87.01 Personal history of pneumonia (recurrent); Z85.118 Personal history of other malignant neoplasm of bronchus and lung; Z85.528 Personal history of other malignant neoplasm of kidney; Z79.899 Other long term (current) drug therapy
CPT/HCPCS: 36415; 36600; 71045; 71270; 80048; 80053; 80076; 81001; 82435; 82803; 82947; 82948; 83605; 83735; 83880; 84100; 84132; 84295; 84484; 85018; 85025; 85027; 85378; 85610; 85730; 87040; 87116; 87206; 87635; 87804; 92610; 93970; 94640; 94664; 99285; G0378; J0456; J0692; J0696; J1100; J1644; J1815; J3475; J3490; J7030; Q9967

== ENCOUNTER 2025-04-05 05:39 | Emergency (ER) | payer OTHER ==
[~2025-04-05] VITALS: Ht 165.1 cm; Wt 63.5 kg
[~2025-04-05 05:39] MED LIST: APIX5TAB PO; LEVO175C3 PO; LEVO750T90 PO
[2025-04-05] MEDS ORDERED: CACL 1GM SYG IVP ONE (05:40)
[2025-04-05 05:41] VITALS: BP 0/0; PULSE 0; RESP 16; O2SAT 87
--- NOTE | 2025-04-05 06:00 | ERN ---
General Chief Complaint: CPR/Full Arrest Stated Complaint: CPR History of Present Illness Initial Comments Mr. Daniels is a 69-year-old male who comes in with a cardiac arrest/code blue. Patient has a history of metastatic lung cancer in his having increase hemoptysis. Patient brought in in active CPR. Allergies: Coded Allergies: No Known Allergies (Unverified Allergy, Unknown, 04/01/23) Home Meds Active Scripts Levofloxacin (Levofloxacin) 750 Mg Tablet, 1 TAB PO DAILY for 7 Days, #7 TAB 0 Refills Prov:DERECK HICKEY MD 03/03/25 Apixaban (Eliquis) 5 Mg Tablet, 1 TAB PO BID for 30 Days, #60 TAB 0 Refills Prov:DERECK HICKEY MD 03/03/25 Apixaban (Eliquis) 5 Mg Tablet, 10 MG PO BID for 7 Days, #14 TAB Prov:DERECK HICKEY MD 03/03/25 Reported Medications Levothyroxine Sodium (Levothyroxine) 175 Mcg Capsule, 1 CAP PO DAILY for 30 Days, #30 CAP 0 Refills 03/01/25 Past Medical History Past Medical History: Other Medical History Other: LUNG CA Past Surgical History: Unknown Surgical History Other: BACK SX Social History Social History: Negative ROS Dictation ROS not able to be done given CPR code blue Physical Exam Physical Exam Dictation General: Unresponsive male actively receiving CPR Head/Face: Normocephalic, atraumatic Eyes: Pupils nonresponsive ENT: Intubated, actively bleeding Neck: Trachea midline, supple, no nuchal rigidity Cardiovascular: RRR, normal S1/S2, No MRGs, no JVD Respiratory: Diminished breath sounds bilaterally Abdomen: Soft, non-tender, non-distended, normal bowel sounds, no guarding or rebound. Skin: Called Skin MS/Extremity: No cyanosis clubbing or edema MDM Patient did have 30 minutes of CPR prior to arrival. Patient has had over 300 cc blood coming from his ET tube. Patient status discuss with the family who at this time wants to stop with CPR. Patient CPR was stopped and it was pronounced at 5:45 a.m. on 04/05/2025. ED Course Vital Signs Date Time Temp Pulse Resp B/P (MAP) Pulse Ox O2 Delivery O2 Flow Rate FiO2 04/05/25 05:41 0 0/0 DX & DISP Disposition: Departure Impression: Primary Impression: Hemoptysis Additional Impression: Cardiac arrest Condition: Stable Referrals: VALERIE CHENG MD (PCP) MARIANNA LINDSEY MD Apr 05, 2025 06:00
--- NOTE | 2025-04-05 06:11 | NUR ---
NOE NOTIFIED AT THIS TIME. SPOKE TO SALON STYLIST IVA CONNOR, REFERENCE # [id number]. PER [employer] STYLIST, [facility] WILL CALL BACK.
== END 2025-04-05 05:45 ==
LOC: EDH 05:39
DX: R04.2 Hemoptysis (principal); I46.9 Cardiac arrest, cause unspecified; Z79.01 Long term (current) use of anticoagulants; Z85.118 Personal history of other malignant neoplasm of bronchus and lung
CPT/HCPCS: 99285; 92950; 82948; J3490 ×3; J0169